=== PATIENT | male | born 1940 | race Caucasian/White ===

== ENCOUNTER 2021-11-09 14:40 | Observation (INO) | payer OTHER, MEDICARE, SELFPAY ==
[2021-11-09] VITALS (16 sets, daily range): BP systolic 178–214; BP diastolic 83–97; PULSE 60–89; RESP 12–22; TEMP 36.7–36.9; O2SAT 92–97; BMI 23.7
--- NOTE | 2021-11-09 14:51 | DI.RAD.S_ITS ---
PROCEDURE: XR CHEST 1V INDICATIONS: suspected sepsis TECHNIQUE: One view of the chest was acquired. COMPARISON: None. FINDINGS: Surgical changes and devices: None. Lungs and pleura: Lungs are clear. No pleural effusions or pneumothorax. Mediastinum: Mediastinal contours appear normal. Heart size is normal. Bones and chest wall: No suspicious bony lesions. Overlying soft tissues appear unremarkable. IMPRESSION: No acute cardiopulmonary pathology. Dictated by: Abelardo Curtis M.D. on 11/09/2021 at 15:44 Approved by: Abelardo Curtis M.D. on 11/09/2021 at 15:44
[2021-11-09 15:16] LABS: Add Manual Diff / Slide Review NO; Basophils Absolute Auto 0 /uL (0-100); Basophils Percent Auto 0.6 % (0-2); Eosinophils Absolute Auto 400 /uL (0-450); Eosinophils Percent Auto 5.8 % (2-4); Hematocrit 32.2 % (41-53); Hemoglobin 10.6 g/dL (13.5-17.5); Lymphocytes Absolute Auto 1600 /uL (1100-4500); Lymphocytes Percent Auto 22.7 % (25-40); Mean Corpuscular HGB Conc 32.8 % (30-36); Mean Corpuscular Hemoglobin 28.2 PG (26-34); Mean Corpuscular Volume 85.9 fL (80-100); Monocytes Absolute Auto 800 /uL (0-900); Monocytes Percent Auto 11.4 % (3-14); Neutrophils Absolute Auto 4100 /uL (1500-7000); Neutrophils Percent Auto 59.5 % (50-75); Platelet Count 318 X10^3/uL (150-400); Red Blood Cell Count 3.75 X10^6/uL (4.5-5.9); White Blood Cell Count 6.9 X10^3/uL (4.5-11.0)
[2021-11-09 15:24] LABS: Alanine Aminotransferase 26 IU/L (<50); Albumin 4.2 g/dL (3.5-5.0); Albumin Globulin Ratio 1.1 (1.0-2.8); Alkaline Phosphatase 83 U/L (38-126); Aspartate Aminotransferase 33 IU/L (17-59); BUN Creatinine Ratio 19.3 (6-22); Bilirubin Total 0.3 mg/dL (0.2-1.3); Blood Urea Nitrogen 27 mg/dL (9-20); Calcium 8.8 mg/dL (8.4-10.2); Carbon Dioxide 24 mmol/L (22-32); Chloride 102 mmol/L (98-107); Estimated Glomerular Filt Rate 51 mL/min (>60); Globulin 3.8 g/dL (1.7-4.1); Glucose 233 mg/dL (80-110); HEMOLYSIS < 15 (0-50); Lactate (Lactic Acid) 1.1 mmol/L (0.7-2.1); Lipase 76 U/L (23-300); Potassium 4.8 mmol/L (3.4-5.1); Sodium 136 mmol/L (137-145)
[2021-11-09 15:40] LABS: Procalcitonin 0.06 ng/mL (<0.5)
[2021-11-09 17:22] LABS: COVID19 -Nasal RAPID Negative (Negative)
[2021-11-09] MEDS: SODIUM CHLORIDE 0.9% 1,000 ML 1000 ML IV (17:27)
[2021-11-09 17:59] LABS: Appearance Urine UA CLEAR; Bilirubin Urine UA NEGATIVE (NEGATIVE); Color Urine UA YELLOW; Glucose Urine UA 1+ g/dL (Negative); Ketones Urine UA NEGATIVE (NEGATIVE); Leukocyte Esterase Urine UA NEGATIVE (NEGATIVE); Nitrite Urine UA NEGATIVE (Negative); Occult Blood Urine UA NEGATIVE (Negative); Protein Urine UA 1+ (Negative); Specific Gravity Urine UA 1.015 (1.000-1.035); Urobilinogen Urine UA 0.2 E.U./dL (0.2); pH Urine UA 5.5 (4.5-8.0)
[2021-11-09 18:07] LABS: Bacteria Urine None Seen; Culture Indicated Urine Cult Not Indicated; RBC Urine None Seen (0-5/HPF); Squamous Epithelial Cell Urine None Seen (0-5/HPF); WBC Urine None Seen (0-5/HPF)
--- NOTE | 2021-11-09 18:11 | ED.WEAKNESS ---
HPI - Weakness General Chief complaint: Weakness Stated complaint: Falling, Dizziness, Mind is scattered, Tired Time Seen by Provider: 11/09/21 15:17 Source: patient and family Mode of arrival: Ambulatory History of Present Illness HPI Narrative: Patient is 81-year-old male history of diabetes on metformin and glipizide chronically on oxycodone presents today with dizziness falling and generalized weakness. He states the last 3 days he has needed to hold onto things to get around his house which is pretty abnormal for him. He says every stands up he gets dizzy he has been falling more he says he has only least 4 times. He does not state that he has any injuries from the falls. He was nauseous and vomited on the way over here because he was dizzy. He generally just feels weak but no real focal deficits. He has not had any fever chills. Does have an infection on his left great toe, difficult to tell how long that has been there for. He has a prescription for Bactrim which was filled 2 days ago. He said he ran out of this prescription and started taking his ferret amoxicillin for couple of days. He says overall he feels like the toe is improving but is still erythematous without streaking. No chest pain no shortness of breath Related Data Home Medications Medication Instructions Recorded Confirmed fluoxetine 10 mg tablet 40 mg PO HS ##0 01/29/16 11/09/21 glipizide 10 mg tablet 10 mg PO BID ##0 01/29/16 11/09/21 hydrochlorothiazide 12.5 mg tablet 12.5 mg PO QDAY ##0 01/29/16 11/09/21 tamsulosin 0.4 mg capsule (Flomax) 0.4 mg PO QAM ##0 01/29/16 11/09/21 metformin 500 mg tablet,extended 1,000 mg PO QPM ##0 02/13/16 11/09/21 release 24 hr (Glucophage XR) metformin 500 mg tablet,extended 1,500 mg PO QAM ##0 02/13/16 11/09/21 release 24 hr (Glucophage XR) celecoxib 200 mg capsule (Celebrex) 200 mg PO BIDCC PRN Pain (Scale 09/29/16 11/09/21 Score 4-6) ##0 finasteride 5 mg tablet 5 mg PO HS ##0 09/29/16 11/09/21 bupropion HCl 100 mg tablet 100 mg PO TID 11/09/21 11/09/21 buspirone 10 mg tablet 10 mg PO DAILY 11/09/21 11/09/21 diazepam 5 mg tablet 5 mg PO DAILY PRN Anxiety 11/09/21 11/09/21 oxycodone myristate 18 mg capsule 18 mg PO BID 11/09/21 11/09/21 sprinkle extended release 12hr(DON'T CRUSH) (Xtampza ER) sulfamethoxazole 800 1 tab PO BID 11/09/21 11/09/21 mg-trimethoprim 160 mg tablet Previous Rx's Medication Instructions Recorded ACETAMINOPHEN 325 mg PO Q4HP PRN ##30 02/14/16 Allergies Allergy/AdvReac Type Severity Reaction Status Date / Time adhesive [ADHESIVE] Allergy Severe HUGE Verified 11/09/21 22:49 BLISTERS PAPER/SILK TAPE OK Review of Systems Review of Systems Narrative: GENERAL: Denies chills, fatigue, malaise, fever, sweats, travel HEENT: Denies sinus pain, ear pain, sore throat, difficulty swallowing, neck pain RESPIRATORY: Denies dyspnea, cough, wheezing, hemoptysis, sputum. CARDIOVASCULAR: Denies chest pain, palpitations, orthopnea, edema GASTROINTESTINAL: Denies nausea, vomiting, abdominal pain, diarrhea, constipation, melena. : Denies dysuria, frequency, incontinence, hematuria, urinary retention, flank pain. MUSCULOSKELETAL: Denies weakness, joint pain, or bony pain SKIN: Right great toe erythema NEUROLOGIC: See HPI PSYCHIATRIC: No concerning psychosocial issues. 12 point review of systems is negative except for those stated above and HPI Patient History Social History household members: none Smoking Status: Former smoker alcohol intake: never Exam Initial Vital Signs Initial Vital Signs: Vital Signs Temperature 98.5 F 11/09/21 14:44 Pulse Rate 82 11/09/21 14:44 Respiratory Rate 22 11/09/21 14:44 Blood Pressure 214/97 H 11/09/21 14:44 Pulse Oximetry 97 11/09/21 14:44 Oxygen Delivery Method 11/09/21 14:44 GENERAL: Alert pleasant 81-year-old male HEENT: Head atraumatic,EOMI, pupils reactive, face symmetric, moist mucous membranes CARDIOVASCULAR: Regular rate and rhythm without murmurs, rubs or gallops. RESPIRATORY: Breath sounds equal bilaterally, no wheezes rales or rhonchi. ABDOMEN: Soft, nontender. Normoactive bowel sounds all 4 quadrants. No guarding or rebound. EXTREMITIES: Normal range of motion, no clubbing or edema. Neurovascularly intact NEUROLOGICAL: Alert and oriented x3.Normal gait and speech. Cranial nerves II through XII grossly intact. Good pjukuw-vn-hfth, good hyju-hi-vzte, strength equal bilaterally, no dysarthria or aphasia, sensation in tact to soft touch bilaterally, no visual changes, no facial droop SKIN: No left great toe is erythematous no streaking no swelling or abscess Scores NIH Stroke Scale Level of Conciousness: Alert, keenly responsive Ask month/age: Answers both questions correctly. Open/close eyes, close hand: Performs both tasks correctly Best gaze horizontal: Normal Visual go: No visual loss Facial palsy: Normal symetrical movement Left arm drift: No drift for full 10 sec Right arm drift: No drift for full 10 sec Left leg drift: No drift for full 5 sec Right leg drift: No drift for full 5 sec Limb ataxia: Absent Sensory on face/arms/legs: Normal, no sensory loss Best language: No aphasia, normal Dysarthria: Normal Extinction or inattention: No abnormality Total NIH Stroke scale score: 0 Course Orders Ordered: ED Orders 11/09/21 16:30 Blood Culture Stat 11/09/21 17:38 Urinalysis and Microscopic Stat 11/09/21 18:12 CT head/brain wo con Stat 11/09/21 18:13 XR foot RT min 3V Stat 11/09/21 19:45 CT angio head and neck Stat Acetaminophen (Acetaminophen 325 Mg Tablet) 650 mg PO Q6HR PRN PRN Reason: Fever/Mild Pain (1-3) Aspirin (Aspirin Ec 81 Mg Tablet) 81 mg PO QPM RICKI Atorvastatin Calcium (Atorvastatin 20 Mg Tablet) 80 mg PO BEDTIME RICKI Clopidogrel Bisulfate (Clopidogrel 75 Mg Tablet) 75 mg PO DAILY RICKI Dextrose (Dextrose 50 % In Water 25 Gm/50 Ml Syringe) 25 gm IV PRN PRN PRN Reason: Hypoglycemia Enoxaparin Sodium (Enoxaparin 40 Mg/0.4 Ml Syringe) 40 mg SUBCUT DAILY [facility] Finasteride (Finasteride 5 Mg Tablet) 5 mg PO BEDTIME RICKI Last Admin: 11/09/21 23:53 Dose: 5 mg Documented By: JAI Fluoxetine HCl (Fluoxetine 20 Mg Capsule) 20 mg PO BEDTIME [facility] Last Admin: 11/09/21 23:53 Dose: 20 mg Documented By: JAI Insulin Human Lispro (Insulin Lispro 100 Unit/Ml 3ml Vial) 0 unit SUBCUT ACHS [facility]; Protocol Ondansetron HCl (Ondansetron 4 Mg/2 Ml Inj) 4 mg IV Q8HR PRN PRN Reason: Nausea And Vomiting Oxycodone HCl (Oxycodone Ir 5 Mg Tablet) 5 mg PO Q4H PRN PRN Reason: Pain, Moderate (4-6) Tamsulosin HCl (Tamsulosin 0.4 Mg Capsule) 0.4 mg PO DAILY [facility] Last Admin: 11/09/21 23:53 Dose: 0.4 mg Documented By: JAI Trimethoprim/Sulfamethoxazole (Trimeth/Sulfa 160/800 (Ds) Tablet) 1 tab PO BID [facility] Discontinued Medications Aspirin (Aspirin 81 Mg Chew Tab) 324 mg PO NOW ONE Stop: 11/09/21 22:09 Last Admin: 11/09/21 22:23 Dose: 324 mg Documented By: JESSICA Sodium Chloride (Normal Saline 0.9%) 1,000 mls @ 1,000 mls/hr IV BOLUS ONE Stop: 11/09/21 15:50 Last Infusion: 11/09/21 20:42 Dose: 0 mls/hr Documented By: Admin: 11/09/21 17:27 Dose: 1,000 mls/hr Documented By: JESSICA Vital Signs Vital signs: Vital Signs - 8 hr 11/09/21 17:12 11/09/21 17:30 11/09/21 18:00 Pulse Rate 69 63 71 Respiratory Rate Blood Pressure Pulse Oximetry 96 97 96 11/09/21 18:30 11/09/21 19:00 11/09/21 19:14 Pulse Rate 89 85 Respiratory Rate Blood Pressure 196/89 H Pulse Oximetry 96 96 11/09/21 19:14 11/09/21 19:30 11/09/21 20:15 Pulse Rate 86 86 86 Respiratory Rate Blood Pressure Pulse Oximetry 97 96 95 11/09/21 20:17 11/09/21 20:17 11/09/21 20:30 Pulse Rate 86 Respiratory Rate 17 Blood Pressure 180/85 H 178/83 H Pulse Oximetry 95 11/09/21 20:30 11/09/21 21:00 11/09/21 21:00 Pulse Rate 82 83 Respiratory Rate 12 16 Blood Pressure 191/88 H Pulse Oximetry 92 MDM - Weakness Lab Data Result diagrams: 11/09/21 15:00 11/09/21 15:00 Labs: Lab Results 11/09/21 11/09/21 11/09/21 Range/Units 15:00 15:00 15:00 WBC 6.9 (4.5-11.0) X10^3/uL RBC 3.75 L (4.5-5.9) X10^6/uL Hgb 10.6 L (13.5-17.5) g/dL Hct 32.2 L (41-53) % MCV 85.9 (80-100) fL MCH 28.2 (26-34) PG MCHC 32.8 (30-36) % RDW 15.0 H (11.6-14.8) % Plt Count 318 (150-400) X10^3/uL Neut % (Auto) 59.5 (50-75) % Lymph % (Auto) 22.7 L (25-40) % [place] % (Auto) 11.4 (3-14) % Eos % (Auto) 5.8 H (2-4) % Baso % (Auto) 0.6 (0-2) % Neut # (Auto) 4100 (7259-5120) /uL Lymph # (Auto) 1600 (2697-2077) /uL [place] # (Auto) 800 (0-900) /uL Eos # (Auto) 400 (0-450) /uL Baso # (Auto) 0 (0-100) /uL Sodium 136 L (137-145) mmol/L Potassium 4.8 (3.4-5.1) mmol/L Chloride 102 (98-107) mmol/L Carbon Dioxide 24 (22-32) mmol/L BUN 27 H (9-20) mg/dL Creatinine 1.40 H (0.66-1.25) mg/dL Estimated GFR 51 L (>60) mL/min BUN/Creatinine Ratio 19.3 (6-22) Glucose 233 H (80-110) mg/dL Lactate 1.1 (0.7-2.1) mmol/L Calcium 8.8 (8.4-10.2) mg/dL Total Bilirubin 0.3 (0.2-1.3) mg/dL AST 33 (17-59) IU/L ALT 26 (<50) IU/L Alkaline Phosphatase 83 (38-126) U/L Total Creatine Kinase (55-170) U/L CK-MB (CK-2) (<2.37) ng/mL CK-MB (CK-2) Rel Index (1.5-5.0) % Troponin I (0.01-0.034) ng/mL Total Protein 8.0 (6.3-8.2) g/dL Albumin 4.2 (3.5-5.0) g/dL Globulin 3.8 (1.7-4.1) g/dL Albumin/Globulin Ratio 1.1 (1.0-2.8) Lipase 76 (23-300) U/L Procalcitonin 0.06 (<0.5) ng/mL Urine Color Urine Appearance Urine pH (4.5-8.0) Ur Specific [place] (1.000-1.035) Urine Protein (Negative) Urine Glucose (UA) (Negative) g/dL Urine Ketones (NEGATIVE) Urine Occult Blood (Negative) Urine Nitrate (Negative) Urine Bilirubin (NEGATIVE) Urine Urobilinogen (0.2) E.U./dL Ur Leukocyte Esterase (NEGATIVE) Urine RBC (0-5/HPF) Urine WBC (0-5/HPF) Ur Squamous Epith Cells (0-5/HPF) Urine Bacteria (None) Ur Culture Indicated? SARS-CoV-2 (PCR) (Negative) 11/09/21 11/09/21 11/09/21 Range/Units 15:00 15:45 17:38 WBC (4.5-11.0) X10^3/uL RBC (4.5-5.9) X10^6/uL Hgb (13.5-17.5) g/dL Hct (41-53) % MCV (80-100) fL MCH (26-34) PG MCHC (30-36) % RDW (11.6-14.8) % Plt Count (150-400) X10^3/uL Neut % (Auto) (50-75) % Lymph % (Auto) (25-40) % [place] % (Auto) (3-14) % Eos % (Auto) (2-4) % Baso % (Auto) (0-2) % Neut # (Auto) (9287-2046) /uL Lymph # (Auto) (6156-7960) /uL [place] # (Auto) (0-900) /uL Eos # (Auto) (0-450) /uL Baso # (Auto) (0-100) /uL Sodium (137-145) mmol/L Potassium (3.4-5.1) mmol/L Chloride (98-107) mmol/L Carbon Dioxide (22-32) mmol/L BUN (9-20) mg/dL Creatinine (0.66-1.25) mg/dL Estimated GFR (>60) mL/min BUN/Creatinine Ratio (6-22) Glucose (80-110) mg/dL Lactate (0.7-2.1) mmol/L Calcium (8.4-10.2) mg/dL Total Bilirubin (0.2-1.3) mg/dL AST (17-59) IU/L ALT (<50) IU/L Alkaline Phosphatase (38-126) U/L Total Creatine Kinase 129 (55-170) U/L CK-MB (CK-2) 2.57 H (<2.37) ng/mL CK-MB (CK-2) Rel Index 2.0 (1.5-5.0) % Troponin I < 0.012 (0.01-0.034) ng/mL Total Protein (6.3-8.2) g/dL Albumin (3.5-5.0) g/dL Globulin (1.7-4.1) g/dL Albumin/Globulin Ratio (1.0-2.8) Lipase (23-300) U/L Procalcitonin (<0.5) ng/mL Urine Color Yellow Urine Appearance Clear Urine pH 5.5 (4.5-8.0) Ur Specific [place] 1.015 (1.000-1.035) Urine Protein 1+ H (Negative) Urine Glucose (UA) 1+ H (Negative) g/dL Urine Ketones Negative (NEGATIVE) Urine Occult Blood Negative (Negative) Urine Nitrate Negative (Negative) Urine Bilirubin Negative (NEGATIVE) Urine Urobilinogen 0.2 (0.2) E.U./dL Ur Leukocyte Esterase Negative (NEGATIVE) Urine RBC None seen (0-5/HPF) Urine WBC None seen (0-5/HPF) Ur Squamous Epith Cells None seen (0-5/HPF) Urine Bacteria None seen (None) Ur Culture Indicated? Cult not indicated SARS-CoV-2 (PCR) Negative (Negative) Imaging Data CTA - brain/neck: Radiologist Impression: Signed Patient: Tia Pedro MR#: [id number] : 1940 Acct:[id number] Age/Sex: 81 / M Date of Service: 11/09/21 Loc: ED Accession Number: [id number] ?? Procedure: CT angio head and neck Ordering Provider: Leticia Cabrera D.O. PROCEDURE:? CT ANGIO HEAD AND NECK ? INDICATIONS:? left foot ataxia ? TECHNIQUE:? After the administration of intravenous contrast, 1 mm thick sections acquired from the aortic arch through the [place].? Post-contrast 4.5 mm thick sections then re-acquired from the foramen magnum to the vertex.? 3-dimensional ffvrqwi-ripagwaxk-tnzvyeutlb (MIP) and/or volume rendering reformats were acquired of the central intracranial vasculature and neck separately. For radiation dose reduction, the following was used:? automated exposure control, adjustment of mA and/or kV according to patient size.? ? COMPARISON:? CT, HEAD WITHOUT CONTRAST, 09/02/2015, 16:33.? [facility], CT, CT HEAD/BRAIN WO CON, 11/09/2021, 18:20. ? FINDINGS:? Image quality:? Excellent.? ? BRAIN:? CSF spaces:? Basal cisterns are patent.? No extra-axial fluid collections.? There is mild cerebral volume loss, with resultant ventricular and sulcal prominence.? ? Brain:? No intracranial hematoma collections, mass, or mass effect.? There are subcortical, periventricular and deep white matter hypodensities consistent with mild chronic small vessel ischemic changes.? There is a focal hypodensity redemonstrated in the left basal ganglia consistent with sequelae of a prior lacunar infarct.? The gonzalez-white matter junction appears preserved.? No abnormal intracranial enhancement. ? Skull and face:? Calvarium and facial bones appear intact, without suspicious lesions.? Orbits appear normal.? ? Sinuses:? Sinuses and mastoids are clear.? ? HEAD CT ANGIOGRAPHY:? Anterior circulation:? Intracranial internal carotid arteries are normal in size and appear patent bilaterally.? There is mild atherosclerotic calcification along the cavernous segments of the internal carotid arteries.? The paired anterior cerebral arteries appear patent bilaterally.? The anterior communicating artery also appears patent. The middle cerebral arteries appear patent bilaterally.? No high-grade stenosis, occlusion, or filling defects.? No cerebral aneurysms identified. ? Posterior circulation:? Visualized portions of the vertebral arteries demonstrate normal caliber, and join to form a patent basilar artery.? The posterior cerebral arteries appears patent bilaterally.? No high-grade stenosis, occlusion, or filling defects.? No cerebral aneurysms identified. ? NECK CT ANGIOGRAPHY:? Carotid system:? The great vessels demonstrate a conventional anatomy as they arise from the aortic arch.? The origins of the common carotid arteries appear patent.? The common carotid arteries demonstrate normal caliber and courses.? There is bilateral calcified plaque at the carotid bifurcations and in the carotid bulbs.? There is severe narrowing of likely greater than 90% in the left carotid bulb.? Within the right carotid bulb, there is narrowing of up to approximately 50%.? The subsequent internal carotid arteries demonstrate normal calibers and courses.? ? Posterior circulation:? The origins of the vertebral arteries both appear patent.? The more superior extracranial portions of both vertebral arteries also demonstrate normal courses and calibers.? They join to form a patent basilar artery.? ? Soft tissues:? Visualized neck soft tissues demonstrate no suspicious abnormalities.? ? Bones:? No suspicious bony lesions.? Visualized cervical spine demonstrates multilevel degenerative disc disease and facet joint arthropathy. ? ? IMPRESSION:? ? 1. No high-grade stenosis or occlusion of the central intracranial arteries. ? 2. Bilateral narrowing in the carotid bulbs including severe stenosis on the left of likely greater than 90%.? There is narrowing of up to approximately 50% in the right carotid bulb. ? 3. Mild chronic white matter small vessel ischemic changes and cerebral volume loss.? ? Any quantitative measurements of stenosis were performed using NASCET criteria.? ? ? Dictated by: Kushal Adams M.D. on 11/09/2021 at 20:15 ? ? Approved by: Kushal Adams M.D. on 11/09/2021 at 20:24 ? CT scan - head: Radiologist Impression: Signed Patient: Tia Pedro MR#: [id number] : 1940 Acct:[id number] Age/Sex: 81 / M Date of Service: 11/09/21 Loc: ED Accession Number: [id number] ?? Procedure: CT head/brain wo con Ordering Provider: Leticia Cabrera D.O. PROCEDURE:? CT HEAD/BRAIN WO CON ? INDICATIONS:? falling dizzy ? TECHNIQUE:? Noncontrast 4.5 mm thick angled axial sections acquired from the foramen magnum to the vertex, with coronal and sagittal reformats.? For radiation dose reduction, the following was used:? automated exposure control, adjustment of mA and/or kV according to patient size.? ? COMPARISON:? None. ? FINDINGS:? Image quality: Excellent ? CSF spaces: Basal cisterns are patent. Lateral ventricles are symmetric. Volume:? Periventricular white matter hypoattenuation is commonly seen with chronic small vessel disease. Volume loss is present. These findings are moderate ? Brain: No intracranial hemorrhage. Gonzalez-white differentiation is grossly maintained.? Possible small old lacunar infarct. ? Craniofacial structures: No displaced fracture. Sinuses are clear. Orbits are intact. ? IMPRESSION:? No acute intracranial abnormality.? Favored chronic findings above.? ? ? Dictated by: Ferdinand Foster M.D. on 11/09/2021 at 18:42 ? ? Chest x-ray: Radiologist Impression: Signed Patient: Tia Pedro MR#: [id number] : 1940 Acct:[id number] Age/Sex: 81 / M Date of Service: 11/09/21 Loc: ED Accession Number: [id number] ?? Procedure: XR chest 1V Ordering Provider: Jessie Abrams MD PROCEDURE:? XR CHEST 1V ? INDICATIONS:? suspected sepsis ? TECHNIQUE:? One view of the chest was acquired.? ? COMPARISON:? None. ? FINDINGS:? ? Surgical changes and devices:? None.? ? Lungs and pleura:? Lungs are clear.? No pleural effusions or pneumothorax.? ? Mediastinum:? Mediastinal contours appear normal.? Heart size is normal.? ? Bones and chest wall:? No suspicious bony lesions.? Overlying soft tissues appear unremarkable.? ? IMPRESSION:? No acute cardiopulmonary pathology. ? ? Dictated by: Abelardo Curtis M.D. on 11/09/2021 at 15:44 ? ? Approved by: Abelardo Curtis M.D. on 11/09/2021 at 15:44 Extremity x-ray #1: Radiologist Impression: Signed Patient: Tia Pedro MR#: [id number] : 1940 Acct:[id number] Age/Sex: 81 / M Date of Service: 11/09/21 Loc: ED Accession Number: [id number] ?? Procedure: XR foot RT min 3V Ordering Provider: Leticia Cabrera D.O. PROCEDURE:? XR FOOT RT MIN 3V ? INDICATIONS:? gret toe infection ? TECHNIQUE:? 3 views of the foot were acquired.? ? COMPARISON:? None. ? FINDINGS:? ? Bones:? 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 Scattered other areas of arthrosis are present, less severe.? Plantar enthesopathy. ? Soft tissues:? No tibiotalar joint effusion.? Achilles tendon appears normal.? ? ? IMPRESSION:? 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 Less severe arthrosis is seen in other joints.? Plantar enthesopathy. No convincing osseous erosion. If there is high concern for further derangement, consider MRI evaluation. ? ? Dictated by: Ferdinand Foster M.D. on 11/09/2021 at 18:47 ? ? Approved by: Ferdinand Foster M.D. on 11/09/2021 at 18:49 ? ECG Data Interpretation: Normal sinus rhythm rate 82 MN interval 190 QRS 104 QTC 4 safety Q-wave noted in lead [address] changes no T-wave inversion, similar to prior in 2016 MDM Narrative Medical decision making narrative: Thrombus time patient does have a right toe infection no sign of osteomyelitis on x-ray. It Is erythematous they do not think causing his ongoing weakness falls and dizziness. Certainly no sign of sepsis. Creatinine up slightly at 1.4 his from previous labs in 2017. Head CT is negative. However upon ambulation trial he really does struck his left foot and he continues to trip over his left foot he thinks it is his shoe. However there is concern for CVA. He is noted to be quite hypertensive in the emergency department. CT angio does not show any abnormality. Certainly not in window for tPA it has been ongoing for [address] Rausch accepts patient Discharge Plan Departure Patient Disposition: Admitted As Inpatient Clinical Impression: CVA (cerebral vascular accident) Admit Date/Time: 11/09/21 22:09 Admit Provider: Ajith Rausch
--- NOTE | 2021-11-09 18:12 | DI.CT.S_ITS ---
PROCEDURE: CT HEAD/BRAIN WO CON INDICATIONS: falling dizzy TECHNIQUE: Noncontrast 4.5 mm thick angled axial sections acquired from the foramen magnum to the vertex, with coronal and sagittal reformats. For radiation dose reduction, the following was used: automated exposure control, adjustment of mA and/or kV according to patient size. COMPARISON: None. FINDINGS: Image quality: Excellent CSF spaces: Basal cisterns are patent. Lateral ventricles are symmetric. Volume: Periventricular white matter hypoattenuation is commonly seen with chronic small vessel disease. Volume loss is present. These findings are moderate Brain: No intracranial hemorrhage. Gonzalez-white differentiation is grossly maintained. Possible small old lacunar infarct. Craniofacial structures: No displaced fracture. Sinuses are clear. Orbits are intact. IMPRESSION: No acute intracranial abnormality. Favored chronic findings above. Dictated by: Ferdinand Foster M.D. on 11/09/2021 at 18:42 Approved by: Ferdinand Foster M.D. on 11/09/2021 at 18:45
--- NOTE | 2021-11-09 18:13 | DI.RAD.S_ITS ---
PROCEDURE: XR FOOT RT MIN 3V INDICATIONS: gret toe infection TECHNIQUE: 3 views of the foot were acquired. COMPARISON: None. 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 Scattered other areas of arthrosis are present, less severe. Plantar enthesopathy. Soft tissues: No tibiotalar joint effusion. Achilles tendon appears normal. 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 Less severe arthrosis is seen in other joints. Plantar enthesopathy. No convincing osseous erosion. If there is high concern for further derangement, consider MRI evaluation. Dictated by: Ferdinand Foster M.D. on 11/09/2021 at 18:47 Approved by: Ferdinand Foster M.D. on 11/09/2021 at 18:49
[2021-11-09 18:46] LABS: Creatine Kinase 129 U/L (55-170)
[2021-11-09 18:59] LABS: Troponin I < 0.012 ng/mL (0.01-0.034)
[2021-11-09 19:02] LABS: Creatine Kinase MB 2.57 ng/mL (<2.37)
--- NOTE | 2021-11-09 19:45 | DI.CT.S_ITS ---
PROCEDURE: CT ANGIO HEAD AND NECK INDICATIONS: left foot ataxia TECHNIQUE: After the administration of intravenous contrast, 1 mm thick sections acquired from the aortic arch through the [place] of [place]. Post-contrast 4.5 mm thick sections then re-acquired from the foramen magnum to the vertex. 3-dimensional yqpfnpg-auzmqjknh-xooumixiqv (MIP) and/or volume rendering reformats were acquired of the central intracranial vasculature and neck separately. For radiation dose reduction, the following was used: automated exposure control, adjustment of mA and/or kV according to patient size. COMPARISON: CT, HEAD WITHOUT CONTRAST, 09/02/2015, 16:33. [facility], CT, CT HEAD/BRAIN WO CON, 11/09/2021, 18:20. FINDINGS: Image quality: Excellent. BRAIN: CSF spaces: Basal cisterns are patent. No extra-axial fluid collections. There is mild cerebral volume loss, with resultant ventricular and sulcal prominence. Brain: No intracranial hematoma collections, mass, or mass effect. There are subcortical, periventricular and deep white matter hypodensities consistent with mild chronic small vessel ischemic changes. There is a focal hypodensity redemonstrated in the left basal ganglia consistent with sequelae of a prior lacunar infarct. The gonzalez-white matter junction appears preserved. No abnormal intracranial enhancement. Skull and face: Calvarium and facial bones appear intact, without suspicious lesions. Orbits appear normal. Sinuses: Sinuses and mastoids are clear. HEAD CT ANGIOGRAPHY: Anterior circulation: Intracranial internal carotid arteries are normal in size and appear patent bilaterally. There is mild atherosclerotic calcification along the cavernous segments of the internal carotid arteries. The paired anterior cerebral arteries appear patent bilaterally. The anterior communicating artery also appears patent. The middle cerebral arteries appear patent bilaterally. No high-grade stenosis, occlusion, or filling defects. No cerebral aneurysms identified. Posterior circulation: Visualized portions of the vertebral arteries demonstrate normal caliber, and join to form a patent basilar artery. The posterior cerebral arteries appears patent bilaterally. No high-grade stenosis, occlusion, or filling defects. No cerebral aneurysms identified. NECK CT ANGIOGRAPHY: Carotid system: The great vessels demonstrate a conventional anatomy as they arise from the aortic arch. The origins of the common carotid arteries appear patent. The common carotid arteries demonstrate normal caliber and courses. There is bilateral calcified plaque at the carotid bifurcations and in the carotid bulbs. There is severe narrowing of likely greater than 90% in the left carotid bulb. Within the right carotid bulb, there is narrowing of up to approximately 50%. The subsequent internal carotid arteries demonstrate normal calibers and courses. Posterior circulation: The origins of the vertebral arteries both appear patent. The more superior extracranial portions of both vertebral arteries also demonstrate normal courses and calibers. They join to form a patent basilar artery. Soft tissues: Visualized neck soft tissues demonstrate no suspicious abnormalities. Bones: No suspicious bony lesions. Visualized cervical spine demonstrates multilevel degenerative disc disease and facet joint arthropathy. IMPRESSION: 1. No high-grade stenosis or occlusion of the central intracranial arteries. 2. Bilateral narrowing in the carotid bulbs including severe stenosis on the left of likely greater than 90%. There is narrowing of up to approximately 50% in the right carotid bulb. 3. Mild chronic white matter small vessel ischemic changes and cerebral volume loss. Any quantitative measurements of stenosis were performed using NASCET criteria. Dictated by: Kushal Adams M.D. on 11/09/2021 at 20:15 Approved by: Kushal Adams M.D. on 11/09/2021 at 20:24
[2021-11-09] MEDS: ASPIRIN 81 MG CHEW TAB 324 MG PO (22:23)
--- NOTE | 2021-11-09 22:27 | P.HP_ITS ---
History of Present Illness History of Present Illness Date Patient Seen: 11/09/21 Time Patient Seen: 21:00 Chief complaint: Falling, Dizziness, Mind is scattered, Tired Narrative: Mr. Pedro is an 81M with PMH DM, who presents with stumbling and weakness. He notes that he has had dizziness over the last few days. He has also had difficulty walking and needs to hold on to things to move around. He feels he has trouble moving his left foot. He is currently being treated for an infection in his right great toe which is improving.?He does get migraines but has no headache now. He has noted difficulty swallowing for about a month. He denies any other extremity weakness. In the ED workup was done, vitals notable for elevated blood pressure 214/97. Labs notable for WBC 6.9. hgb 10.6. Creatinine 1.4. Lactate 1.1. UA negative. CT head with no acute process. CTA showed bilateral carotid bulb disease. Foot xray showed no evidence of osteomyelitis. He was attempting to ambulate but noted to have ataxia on his left and possible foot drop. He was given aspirin and admitted for further treatment. Family history: denies any stroke in family Social history: remote alcohol use Meds Home Medications and Allergies Home Medications Medication Instructions Recorded Confirmed Type fluoxetine 10 mg tablet 40 mg PO HS ##0 01/29/16 11/09/21 History glipizide 10 mg tablet 10 mg PO BID ##0 01/29/16 11/09/21 History hydrochlorothiazide 12.5 mg tablet 12.5 mg PO QDAY ##0 01/29/16 11/09/21 History tamsulosin 0.4 mg capsule (Flomax) 0.4 mg PO QAM ##0 01/29/16 11/09/21 History metformin 500 mg tablet,extended 1,000 mg PO QPM ##0 02/13/16 11/09/21 History release 24 hr (Glucophage XR) metformin 500 mg tablet,extended 1,500 mg PO QAM ##0 02/13/16 11/09/21 History release 24 hr (Glucophage XR) ACETAMINOPHEN 325 mg PO Q4HP PRN ##30 02/14/16 11/09/21 Rx celecoxib 200 mg capsule (Celebrex) 200 mg PO BIDCC PRN Pain (Scale 09/29/16 11/09/21 History Score 4-6) ##0 finasteride 5 mg tablet 5 mg PO HS ##0 09/29/16 11/09/21 History bupropion HCl 100 mg tablet 100 mg PO TID 11/09/21 11/09/21 History buspirone 10 mg tablet 10 mg PO DAILY 11/09/21 11/09/21 History diazepam 5 mg tablet 5 mg PO DAILY PRN Anxiety 11/09/21 11/09/21 History oxycodone myristate 18 mg capsule 18 mg PO BID 11/09/21 11/09/21 History sprinkle extended release 12hr(DON'T CRUSH) (Xtampza ER) sulfamethoxazole 800 1 tab PO BID 11/09/21 11/09/21 History mg-trimethoprim 160 mg tablet Allergies Allergy/AdvReac Type Severity Reaction Status Date / Time adhesive [ADHESIVE] Allergy Severe HUGE Verified 11/09/21 22:49 BLISTERS PAPER/SILK TAPE OK Review of Systems Review of Systems Narrative: 14 systems reviewed and negative aside from what is noted in HPI Exam Vital Signs (past 8 hours): - 11/09/21 14:44 11/09/21 16:39 11/09/21 17:12 Temperature 98.5 F Pulse Rate 82 68 69 Respiratory Rate 22 20 Blood Pressure 214/97 H 190/86 H Pulse Oximetry 97 97 96 Oxygen Delivery Method Room Air Room Air 11/09/21 17:30 11/09/21 18:00 11/09/21 18:30 Temperature Pulse Rate 63 71 89 Respiratory Rate Blood Pressure Pulse Oximetry 97 96 96 Oxygen Delivery Method 11/09/21 19:00 11/09/21 19:14 11/09/21 19:14 Temperature Pulse Rate 85 86 Respiratory Rate Blood Pressure 196/89 H Pulse Oximetry 96 97 Oxygen Delivery Method 11/09/21 19:30 11/09/21 20:15 11/09/21 20:17 Temperature Pulse Rate 86 86 Respiratory Rate Blood Pressure 180/85 H Pulse Oximetry 96 95 Oxygen Delivery Method 11/09/21 20:17 11/09/21 20:30 11/09/21 20:30 Temperature Pulse Rate 86 82 Respiratory Rate 17 12 Blood Pressure 178/83 H Pulse Oximetry 95 92 Oxygen Delivery Method 11/09/21 21:00 11/09/21 21:00 Temperature Pulse Rate 83 Respiratory Rate 16 Blood Pressure 191/88 H Pulse Oximetry Oxygen Delivery Method Oxygen Delivery Method Room Air Narrative Exam Narrative: GEN: no acute distress HEENT: moist mucous membranes, PERRL NECK: trachea midline, no JVD PULM: clear bilaterally, no wheezes, rhonchi, rales CV: regular rate and rhyhtm, no murmurs ABD: soft, nontender, nondistended, no organomegaly EXT: warm and well perfused with no edema NEURO: awake, alert, oriented, cn 2-12 intact, no focal deficits noted SKIN: right great toe is erythematous and swollen Objective Labs Result Diagrams: 11/09/21 15:00 11/09/21 15:00 Labs: Laboratory Results - last 24 hr 11/09/21 11/09/21 11/09/21 15:00 15:00 15:00 WBC 6.9 RBC 3.75 L Hgb 10.6 L Hct 32.2 L MCV 85.9 MCH 28.2 MCHC 32.8 RDW 15.0 H Plt Count 318 Neut % (Auto) 59.5 Lymph % (Auto) 22.7 L Cedar % (Auto) 11.4 Eos % (Auto) 5.8 H Baso % (Auto) 0.6 Neut # (Auto) 4100 Lymph # (Auto) 1600 [place]edar # (Auto) 800 Eos # (Auto) 400 Baso # (Auto) 0 Sodium 136 L Potassium 4.8 Chloride 102 Carbon Dioxide 24 BUN 27 H Creatinine 1.40 H Estimated GFR 51 L BUN/Creatinine Ratio 19.3 Glucose 233 H Lactate 1.1 Calcium 8.8 Total Bilirubin 0.3 AST 33 ALT 26 Alkaline Phosphatase 83 Total Creatine Kinase CK-MB (CK-2) CK-MB (CK-2) Rel Index Troponin I Total Protein 8.0 Albumin 4.2 Globulin 3.8 Albumin/Globulin Ratio 1.1 Lipase 76 Procalcitonin 0.06 Urine Color Urine Appearance Urine pH Ur Specific [place] Urine Protein Urine Glucose (UA) Urine Ketones Urine Occult Blood Urine Nitrate Urine Bilirubin Urine Urobilinogen Ur Leukocyte Esterase Urine RBC Urine WBC Ur Squamous Epith Cells Urine Bacteria Ur Culture Indicated? SARS-CoV-2 (PCR) 11/09/21 11/09/21 11/09/21 15:00 15:45 17:38 WBC RBC Hgb Hct MCV MCH MCHC RDW Plt Count Neut % (Auto) Lymph % (Auto) [place] % (Auto) Eos % (Auto) Baso % (Auto) Neut # (Auto) Lymph # (Auto) Cedar # (Auto) Eos # (Auto) Baso # (Auto) Sodium Potassium Chloride Carbon Dioxide BUN Creatinine Estimated GFR BUN/Creatinine Ratio Glucose Lactate Calcium Total Bilirubin AST ALT Alkaline Phosphatase Total Creatine Kinase 129 CK-MB (CK-2) 2.57 H CK-MB (CK-2) Rel Index 2.0 Troponin I < 0.012 Total Protein Albumin Globulin Albumin/Globulin Ratio Lipase Procalcitonin Urine Color Yellow Urine Appearance Clear Urine pH 5.5 Ur Specific [place] 1.015 Urine Protein 1+ H Urine Glucose (UA) 1+ H Urine Ketones Negative Urine Occult Blood Negative Urine Nitrate Negative Urine Bilirubin Negative Urine Urobilinogen 0.2 Ur Leukocyte Esterase Negative Urine RBC None seen Urine WBC None seen Ur Squamous Epith Cells None seen Urine Bacteria None seen Ur Culture Indicated? Cult not indicated SARS-CoV-2 (PCR) Negative Assessment & Plan Assessment & Plan narrative: Mr. Pedro is an 81M with H DM who presents with falls and ataxia 1. Ataxia -he also notes subacute dysphagia -etiology may be secondary to stroke/TIA -CT head shows no acute process -already on aspirin/statin -add plavix -swallow screen -NIH q4 hrs -keep on telemetry -allow permissive hypertension -ordered for MRI and ECHO -check a1c and lipids -ordered PT/OT and speech therapy 2. Left carotid bulb stenosis, severe -also 50% st[place] in right carotid bulb -already on aspirin and statin -add plavix -consider outpatient referral for carotid endarterectomy 3. Type 2 Diabetes with hyperglycemia -hold oral meds -check glucose achs, ordered insulin sliding scale 4. Right large toe cellulitis -continue bactrim -xray showed no evidence of osteomyelitis 5. BPH -continue finasteride and tamsulosin 6. Hypertension -hold anti-hypertensives for now for permissive hypertension 7. Elevated creatinine -possibly secondary to CKD vs AMBER -did get fluids in ED -recheck if improved in AM CODE: still deciding, Full code for now Proxy: Tia Johnson, family I have utilized all available resources to reconcile the patient's home medications Time Spent With Patient Critical Care time: I spent a total of [] minutes of critical care time on this patient's care today; this time is exclusive of procedural time. Quality MIPS - Admit I confirm the patient?s Advance Care Plan is present, Code status is documented, Surrogate decision maker is in patient?s record [If Yes, STOP here]: Yes
--- NOTE | 2021-11-09 22:58 | DI.ECHO.S_ITS ---
[facility]---------+ [facility] +---------+ : : [address] : : : : [id number] : : : : Phone: [phone]+ Echocardiogram Report + + :Name: DOMINGO SANTACRUZ Study Date: 11/10/2021 Height: 71 in : :[facility] ReadingLocation: Weight: 170 lb : : Gender: Male BSA: 2.0 m2 : :: 1940 Age: 81 yrs BP: 181/92 mmHg: :Reason For Study: STROKE : :Ordering Physician: THEA, : :CHAPO Performed By: Caroline Guy : :Referring: CHAPO SIDHU : + + Interpretation Summary There is mild concentric left ventricular hypertrophy. The ejection fraction is estimated to be 50-55%. Grade I diastolic dysfunction. The left atrium is mildly dilated. The right ventricle is normal in size and function. No significant valvular abnormalities. Unable to estimate PASP. The aortic root is mildly dilated. Procedure: A two-dimensional transthoracic echocardiogram with color flow and Doppler was performed. The study quality was technically adequate. There is no prior echocardiogram noted for this patient. The heart rate ranged between 67-91 bpm during the study. Left Ventricle: The left ventricle is normal in size. There is mild concentric left ventricular hypertrophy. The ejection fraction is estimated to be 50-55%. Diastolic parameters suggest a relaxation abnormality of the left ventricle, consistent with probable normal filling pressures. Right Ventricle: The right ventricle is normal in size and function. Atria: The left atrium is mildly dilated. Right atrial size is normal. There is no Doppler evidence for an interatrial shunt. Mitral Valve: The mitral valve is normal in structure and function. There is trace mitral regurgitation. Aortic Valve: The aortic valve is mildly calcified. The aortic valve is trileaflet. There is no aortic valve stenosis. No aortic regurgitation is present. Tricuspid Valve: The tricuspid valve is normal in structure and function. There is trace tricuspid regurgitation. Pulmonary artery pressures cannot be estimated because of the lack of a measurable TR jet velocity. Pulmonic Valve: The pulmonic valve leaflets are thin and pliable; valve motion is normal. There is no pulmonic valvular regurgitation. Great Vessels: The aortic root is mildly dilated. The dimensions of the ascending aorta are normal. The IVC is of normal diameter and collapses greater than 50% with a sniff. This suggests a low right atrial pressure of 3 mm Hg. Pericardium/ Pleura There is no pericardial effusion. There is no pleural effusion. MMode/2D Measurements & Calculations LVIDd: 4.5 cm LVOT diam: 2.4 cm LVIDs: 3.5 cm Ao root diam: 4.2 cm FS: 22.5 % asc Aorta Diam: 3.6 cm IVSd: 1.3 cm Ao Arch Diam (Prox Trans): 3.7 cm LVPWd: 1.2 cm LV walker. diameter/BSA (cm/m^2): 2.3 LV sys. diameter/BSA (cm/m^2): 1.8 LA A2 area: 22.2 cm2 RA long axis: 6.2 cm LA A4 area: 25.3 cm2 RA area: 16.0 cm2 LA length (vol): 6.0 cm RA vol: 35.4 ml LA vol: 79.0 ml RA : 18.0 ml/m2 LA vol index: 40.2 ml/m2 IVC diam: 1.5 cm RVD1 (basal): 3.3 cm RVD2 (mid): 3.5 cm TAPSE: 1.9 cm Doppler Measurements & Calculations Ao V2 max: 147.2 cm/sec LVOT Max Savage: 100.6 cm/sec Ao V2 mean: 103.8 cm/sec LV V1 max P.1 mmHg Ao max P.7 mmHg LV V1 VTI: 20.3 cm Ao mean P.8 mmHg BESSY(I,D): 3.4 cm2 Ao V2 VTI: 28.0 cm BESSY(V,D): 3.2 cm2 sev ratio: 0.72 BESSY indexed to BSA (cm^2/m^2): 1.7 MV E max savage: 55.9 cm/sec PA V2 max: 89.5 cm/sec MV A max savage: 80.4 cm/sec PA V2 mean: 59.2 cm/sec MV E/A: 0.70 PA mean P.6 mmHg Med Peak E' Savage: 7.1 cm/sec PA pr(Accel): 17.3 mmHg E/E' med: 7.9 Lat Peak E' Savage: 5.4 cm/sec E/E' lat: 10.4 E/e' average: 9.1 MV dec time: 0.36 sec SV(LVOT): 94.6 ml Reading Physician:02:49 PM
--- NOTE | 2021-11-09 22:58 | DI.MRI.S_ITS ---
PROCEDURE: MR STROKE Pre- and post-contrast brain MRI, non-contrast brain MR angiogram, pre- and postcontrast neck MR angiogram INDICATIONS: r/o cva TECHNIQUE: Brain: Noncontrast axial T1 spin echo, axial T2 fast spin echo, sagittal and axial FLAIR, coronal T2 fast spin echo, axial gradient echo, axial diffusion and ADC through the brain. After the administration of contrast, axial 3D VIBE of the cranial vasculature and brain. Brain MRA: Non-contrast 3-D time of flight MR angiogram, with multiple iakcnkc-jdqmstrxq-sjykvbbxck (MIP) reformats performed. Neck MRA: Axial and sagittal TruFISP through the neck. Coronal dynamic MR angiogram during administration of contrast in the arterial and venous phases, with 3-dimenstional dbumcuh-tqjuzswrz-iftjgrycgb (MIP) reformats constructed from subtraction images. COMPARISON: [facility], CT, CT ANGIO HEAD AND NECK, 11/09/2021, 19:52. FINDINGS: Image quality: Significant motion is present throughout the exam limiting areas of fine detail evaluation. BRAIN: The ventricular system and cortical sulci demonstrate atrophy, consistent for the patient's stated age. There are areas of increased T2/FLAIR signal intensity within the periventricular and subcortical white matter. There is no acute intra-or extra axial fluid collection. No acute hemorrhage, mass lesion or midline shift. Brainstem is unremarkable. There are no areas of restricted diffusion. Globes are symmetrical. Sinuses are aerated. Osseous structures are intact. BRAIN MR ANGIOGRAM: Anterior circulation: Intracranial internal carotid arteries are normal in size and enhancement. The flow within the paired anterior cerebral arteries is normal and symmetric. The flow within the middle cerebral arteries is normal and symmetric. The anterior communicating artery is seen. No stenoses, occlusions, or aneurysms. Posterior circulation: There is a slight right vertebral artery dominance. The visualized portions of the vertebral arteries demonstrate normal caliber, and join to form a normal appearing basilar artery. The flow within the posterior cerebral arteries is normal and symmetric. No stenoses, occlusions, or aneurysms. NECK MR ANGIOGRAM: The origins of the left and righ external carotid arteries demonstrate no areas of hemodynamically significant stenosis, vascular occlusion or aneurysmal dilation. Calcification is noted at the origins of the internal carotid arteries bilaterally, better appreciated on CT exam of 11/09/2021. There is severe narrowing, greater than 80% at the left carotid bulb. In addition, there is approximately 50% narrowing at the carotid bulb on the right. There is mild proximal right internal carotid artery stenosis measuring approximately the 30%. It proximal internal artery stenosis on the left is also present, approximately 30%. Origins of the left and right vertebral arteries demonstrate no areas of hemodynamically significant stenosis, vascular occlusion or aneurysmal dilation. Aortic arch demonstrates conventional anatomy. Limited, visualized portions of the subclavian vasculature are unremarkable. IMPRESSION: 1. No acute intracranial process. 2. Moderate to severe atrophy and chronic microvascular ischemic changes. 3. No areas of hemodynamically significant stenosis, vascular occlusion or aneurysmal dilation within the anterior or posterior circulation. 4. Prominent narrowing with calcification at the carotid bulbs bilaterally, left greater than right as above. Dictated by: Rea Akins M.D. on 11/10/2021 at 11:56 Approved by: Rea Akins M.D. on 11/10/2021 at 12:04
[2021-11-09] MEDS: TAMSULOSIN 0.4 MG CAPSULE PO (23:53)
[2021-11-09] MEDS: FLUoxetine 20 MG CAPSULE PO (23:53)
[2021-11-09] MEDS: FINASTERIDE 5 MG TABLET PO (23:53)
--- NOTE | 2021-11-10 03:42 | PC.NURSE ---
pt is AXOx4, independent and cooperative. VSS, except BP is slightly hypertensive 182/89 and MD is aware of it. Pt c/o little sting pain on R merchant bc he scratched around this area and sligtly bleeding and has small dots of open skin. BG-173 after pt arrived to the unit. NIH score was 0. Pt has Tele and it shows SR. No other changes overnight. Will continue monitor.
[2021-11-10] MEDS: OXYCODONE IR 5 MG TABLET PO ×2 (04:51→14:12)
[2021-11-10 07:00] VITALS: O2SAT 95
[2021-11-10 07:32] LABS: Add Manual Diff / Slide Review NO; Basophils Absolute Auto 0 /uL (0-100); Basophils Percent Auto 0.5 % (0-2); Eosinophils Absolute Auto 400 /uL (0-450); Eosinophils Percent Auto 7.4 % (2-4); Hematocrit 32.6 % (41-53); Hemoglobin 10.7 g/dL (13.5-17.5); Lymphocytes Absolute Auto 1100 /uL (1100-4500); Lymphocytes Percent Auto 22.6 % (25-40); Mean Corpuscular HGB Conc 32.8 % (30-36); Mean Corpuscular Hemoglobin 28.1 PG (26-34); Mean Corpuscular Volume 85.6 fL (80-100); Monocytes Absolute Auto 700 /uL (0-900); Monocytes Percent Auto 14.4 % (3-14); Neutrophils Absolute Auto 2800 /uL (1500-7000); Neutrophils Percent Auto 55.1 % (50-75); Platelet Count 314 X10^3/uL (150-400); Red Blood Cell Count 3.81 X10^6/uL (4.5-5.9); Red Cell Distribution Width 14.8 % (11.6-14.8); White Blood Cell Count 5.1 X10^3/uL (4.5-11.0)
[2021-11-10 07:36] LABS: BUN Creatinine Ratio 17.9 (6-22); Blood Urea Nitrogen 20 mg/dL (9-20); Calcium 8.7 mg/dL (8.4-10.2); Carbon Dioxide 27 mmol/L (22-32); Chloride 102 mmol/L (98-107); Cholesterol 194 mg/dL (140-199); Estimated Glomerular Filt Rate > 60 mL/min (>60); Glucose 161 mg/dL (80-110); HDL Cholesterol 45 mg/dL (40-60); HEMOLYSIS < 15 (0-50); LDL Cholesterol Calculated 121 mg/dL (<100); Potassium 4.4 mmol/L (3.4-5.1); Sodium 135 mmol/L (137-145); Triglycerides 142 mg/dL (35-150)
[2021-11-10 07:42] LABS: Hemoglobin A1C% w Est Avg Glu 9.1 % (4.0-6.0)
[2021-11-10 07:44] VITALS: BP 189/69; PULSE 82; RESP 18; TEMP 36.8; O2SAT 97
--- NOTE | 2021-11-10 07:56 | P.PN_ITS ---
Subjective Subjective Date Patient Seen: 11/10/21 Time Patient Seen: 15:00 Exam Vital Signs (past 8 hours): - 11/10/21 07:00 11/10/21 07:44 Temperature 98.2 F Pulse Rate 82 Respiratory Rate 18 Blood Pressure 189/69 H Pulse Oximetry 95 97 Oxygen Delivery Method Room Air Oxygen Flow Rate 0 Oxygen Delivery Method Room Air Oxygen Flow Rate 0 Narrative Exam Narrative: GEN: no acute distress HEENT: moist mucous membranes, PERRL NECK: trachea midline, no JVD PULM: clear bilaterally, no wheezes, rhonchi, rales CV: regular rate and rhyhtm, no murmurs ABD: soft, nontender, nondistended, no organomegaly EXT: warm and well perfused with no edema NEURO: awake, alert, oriented, cn 2-12 intact, no focal deficits noted SKIN: right great toe is erythematous and swollen Objective Labs Result Diagrams: 11/10/21 06:30 11/10/21 06:30 Labs: Laboratory Results - last 24 hr 11/09/21 11/09/21 11/09/21 15:00 15:00 15:00 WBC 6.9 RBC 3.75 L Hgb 10.6 L Hct 32.2 L MCV 85.9 MCH 28.2 MCHC 32.8 RDW 15.0 H Plt Count 318 Neut % (Auto) 59.5 Lymph % (Auto) 22.7 L Mercer % (Auto) 11.4 Eos % (Auto) 5.8 H Baso % (Auto) 0.6 Neut # (Auto) 4100 Lymph # (Auto) 1600 Mercer # (Auto) 800 Eos # (Auto) 400 Baso # (Auto) 0 Sodium 136 L Potassium 4.8 Chloride 102 Carbon Dioxide 24 BUN 27 H Creatinine 1.40 H Estimated GFR 51 L BUN/Creatinine Ratio 19.3 Glucose 233 H Hemoglobin A1c Lactate 1.1 Calcium 8.8 Total Bilirubin 0.3 AST 33 ALT 26 Alkaline Phosphatase 83 Total Creatine Kinase CK-MB (CK-2) CK-MB (CK-2) Rel Index Troponin I Total Protein 8.0 Albumin 4.2 Globulin 3.8 Albumin/Globulin Ratio 1.1 Triglycerides Cholesterol LDL Cholesterol, Calc HDL Cholesterol Lipase 76 Procalcitonin 0.06 Urine Color Urine Appearance Urine pH Ur Specific [place] Urine Protein Urine Glucose (UA) Urine Ketones Urine Occult Blood Urine Nitrate Urine Bilirubin Urine Urobilinogen Ur Leukocyte Esterase Urine RBC Urine WBC Ur Squamous Epith Cells Urine Bacteria Ur Culture Indicated? SARS-CoV-2 (PCR) 11/09/21 11/09/21 11/09/21 15:00 15:45 17:38 WBC RBC Hgb Hct MCV MCH MCHC RDW Plt Count Neut % (Auto) Lymph % (Auto) Mercer % (Auto) Eos % (Auto) Baso % (Auto) Neut # (Auto) Lymph # (Auto) Mercer # (Auto) Eos # (Auto) Baso # (Auto) Sodium Potassium Chloride Carbon Dioxide BUN Creatinine Estimated GFR BUN/Creatinine Ratio Glucose Hemoglobin A1c Lactate Calcium Total Bilirubin AST ALT Alkaline Phosphatase Total Creatine Kinase 129 CK-MB (CK-2) 2.57 H CK-MB (CK-2) Rel Index 2.0 Troponin I < 0.012 Total Protein Albumin Globulin Albumin/Globulin Ratio Triglycerides Cholesterol LDL Cholesterol, Calc HDL Cholesterol Lipase Procalcitonin Urine Color Yellow Urine Appearance Clear Urine pH 5.5 Ur Specific [place] 1.015 Urine Protein 1+ H Urine Glucose (UA) 1+ H Urine Ketones Negative Urine Occult Blood Negative Urine Nitrate Negative Urine Bilirubin Negative Urine Urobilinogen 0.2 Ur Leukocyte Esterase Negative Urine RBC None seen Urine WBC None seen Ur Squamous Epith Cells None seen Urine Bacteria None seen Ur Culture Indicated? Cult not indicated SARS-CoV-2 (PCR) Negative 11/10/21 11/10/21 11/10/21 06:30 06:30 06:30 WBC 5.1 RBC 3.81 L Hgb 10.7 L Hct 32.6 L MCV 85.6 MCH 28.1 MCHC 32.8 RDW 14.8 Plt Count 314 Neut % (Auto) 55.1 Lymph % (Auto) 22.6 L Mercer % (Auto) 14.4 H Eos % (Auto) 7.4 H Baso % (Auto) 0.5 Neut # (Auto) 2800 Lymph # (Auto) 1100 Mercer # (Auto) 700 Eos # (Auto) 400 Baso # (Auto) 0 Sodium 135 L Potassium 4.4 Chloride 102 Carbon Dioxide 27 BUN 20 Creatinine 1.12 Estimated GFR > 60 BUN/Creatinine Ratio 17.9 Glucose 161 H Hemoglobin A1c 9.1 H Lactate Calcium 8.7 Total Bilirubin AST ALT Alkaline Phosphatase Total Creatine Kinase CK-MB (CK-2) CK-MB (CK-2) Rel Index Troponin I Total Protein Albumin Globulin Albumin/Globulin Ratio Triglycerides 142 Cholesterol 194 LDL Cholesterol, Calc 121 H HDL Cholesterol 45 Lipase Procalcitonin Urine Color Urine Appearance Urine pH Ur Specific [place] Urine Protein Urine Glucose (UA) Urine Ketones Urine Occult Blood Urine Nitrate Urine Bilirubin Urine Urobilinogen Ur Leukocyte Esterase Urine RBC Urine WBC Ur Squamous Epith Cells Urine Bacteria Ur Culture Indicated? SARS-CoV-2 (PCR) [facility] Social History household members: none Smoking Status: Former smoker alcohol intake: never Assessment & Plan Assessment & Plan narrative: Mr. Pedro is an 81M with PMH DM who presents with falls and ataxia 1. Ataxia -he also notes subacute dysphagia -etiology may be secondary to stroke/TIA -CT head shows no acute process -already on aspirin/statin -add plavix -swallow screen -NIH q4 hrs -keep on telemetry -allow permissive hypertension -ordered for MRI and ECHO -a1c 9.1%, LDL 121 -ordered PT/OT and speech therapy 2. Left carotid bulb stenosis, severe -also 50% stenosis in right carotid bulb -already on aspirin and statin -add plavix -consider outpatient referral for carotid endarterectomy 3. Type 2 Diabetes with hyperglycemia -hold oral meds -check glucose achs, ordered insulin sliding scale 4. Right large toe cellulitis -continue bactrim -xray showed no evidence of osteomyelitis 5. BPH -continue finasteride and tamsulosin 6. Hypertension -hold anti-hypertensives for now for permissive hypertension 7. Elevated creatinine -possibly secondary to CKD vs AMBER -did get fluids in ED -recheck if improved in AM CODE: still deciding, Full code for now Proxy: Tia Johnson, family I have utilized all available resources to reconcile the patient's home medications Time Spent With Patient Critical Care time: I spent a total of [] minutes of critical care time on this patient's care today; this time is exclusive of procedural time. Quality VTE Deep Vein Thrombosis/Pulmonary Embolism Present on Admission: No
[2021-11-10] MEDS: CLOPIDOGREL 75 MG TABLET PO (08:16)
[2021-11-10] MEDS: TAMSULOSIN 0.4 MG CAPSULE PO (08:16)
[2021-11-10] MEDS: TRIMETH/SULFA 160/800 (DS) TABLET 1 TAB PO (08:16)
[2021-11-10] MEDS: ENOXAPARIN 40 MG/0.4 ML SYRINGE SUBCUT (08:19)
[2021-11-10] MEDS: diazePAM 5 MG TABLET 10 MG PO (08:56)
--- NOTE | 2021-11-10 10:23 | PC.NURSE ---
Addendum entered by Shirley Mobley R.N. 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 tolerated dose w/o side effects. states burning has decreased foam dressing applied and wrapped w/ gauze. oxycodone 10mg found in his bed, not hospital supply. large bag of meds noted to be in the corner, and this was sent to pharmacy to hold, along w/ the pink oxycodone which was taped into a plastic baggie and handed to pharmacist Clark. patient states i think i had the oxycodone bottle here, but I cant find it. PIPELINE INSPECTOR and RN searched room to locate the bottle, but did not locate it. call placed to son to update on today's events, and let him know about the missing bottle of oxycodone. 1530: d/c orders: call to son to notify of need to p/u. echo : 50-55% Original Note: a/o, voices needs. SBA ADL assistance and mobility. c/o slight pain /tingling to R merchant, which has superficial scabbed scratches from ankle to mid merchant. area cleansed w/ warm washcloth, petroleum jelly applied to protect skin . has large callus to R great toe, patient visits mottler machine feeder regularly, states he was seen recently the doctor shaved off part of that and left it. wound RN notified of above and anticipate we can take a pic of R foot when he returns from MRI. NIH 1 this AM r/t ataxia RLE. requested PRN valium as patient takes this at home. additional order requested prior to MRI. 10mg Valium given. off floor via w/c for MRI.
--- NOTE | 2021-11-10 12:13 | PC.RNWOUND ---
Right Great Toe- Medial View Right Great Toe- Dorsal View Right Great Toe- Plantar View Patient sitting up in chair, removes sock to right foot, Right Great Toe has a build up of callus to the medial aspect of the toe, with a 0.2 x 0.3 x 0.1cm open area to the callus on the plantar toe. Toenail to this digit is thickened, 2nd digit crosses over to overlap great toe and there is a small reddened area to the 2nd toe where it appears it may be rubbing in toebox of shoe. 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 Patient says he sees control clerk auditing regularly for serial debridements of callus, is currently on antibiotics (oral bactrim) for management of infection. Patient says swelling has really gone down compared to how it was before. Recommendation is for patient to follow up with podiatry for continued callus debridement and for evaluation of footwear with degenerative changes, also with assistant health educator for continued education re importance of blood glucose control as a lifestyle.
[2021-11-10 12:16] VITALS: BP 162/63; PULSE 91; RESP 16; TEMP 36.8; O2SAT 96
--- NOTE | 2021-11-10 12:17 | PT.IIE ---
Physical Therapy Inpatient Evaluation/Re-Eval M1 PT/OT-IP Prior Functional Status Start: 11/10/21 12:46 Freq: NEEDED Status: Active Protocol: Document 11/10/21 12:17 AB (Rec: 11/10/21 12:57 AB [id number]) Medical Review Prior Functional Status Medical History Reviewed Yes Communication able to make needs known; with slight confusion Mobility and Gait pt stated that he is independent with all mobilities and ambulation wtihout AD Social History Household Members none Living Arrangements House Number of Floors (Floors) One Floor Number of Stairs To Enter/Railing? 3 steps R rail to enter Home Environment Standard Height Toilet,Tub/ Shower Home Equipment Front Wheel Walker,Quad Cane, Straight Cane,Shower Seat with Backrest,Hand Held Shower, Grab Bars Near Toilet,Grab Bars In Shower Additional Social History Comment pt stated that his son lives 10 min away and he can call to help him if needed M2 PT-IP Current Condition Start: 11/10/21 12:46 Freq: NEEDED Status: Active Protocol: Document 11/10/21 12:17 AB (Rec: 11/10/21 12:57 AB [id number]) Physical Therapy Current Condition Current Condition Evaluation Date 11/10/21 Treatment Diagnosis r/o CVA; difficulty in walking Onset Date 11/09/21 M3 PT-IP Subjective Start: 11/10/21 12:46 Freq: NEEDED Status: Active Protocol: Document 11/10/21 12:17 AB (Rec: 11/10/21 12:57 [id number]) Subjective Physical Therapy Visit Type Type Initial Evaluation Visit Start Time 12:17 Visit Stop Time 12:35 Total Visit Minutes 18 Number of BACTERIOLOGIST SOIL Visits 0 Physical Therapy Visit Comments Patient Comments agreeable to do PT Therapy Pain Assessment Pain When Pain Assessed At Rest Pain Present Pain Present Pain Reported Location Right Lower Iglesias Scale Used pain scale not stated M4 PT-IP Mobility and Gait Start: 11/10/21 12:46 Freq: NEEDED Status: Active Protocol: Document 11/10/21 12:17 AB (Rec: 11/10/21 12:57 [id number]) PT-Bed Mobility Assessment Supine to Sit Supine to Sit Independent Sit to Supine Sit to Supine Independent PT-Transfer Assessment Sit to and From Stand Sit to and from Stand Standby Assistance Equipment Transfer Assistive Device None,Gait Belt Orthotic/Prosthetic Devices or Brace: No Transfers Transfer Destination Bed,Chair Transfer Technique ambulated Comments Mobility Comments pt sitting on chair and agreed to do PT. completed sit to stand from chair SBA and ambulated to the bed without AD SBA. presents with narrow antalgic gait with dec BLE elevation R>L. completed bed mobility sit<>supine mod I. ambulated back to chair SBA to CGA with one incident of pt tripping but with recovery. educated pt in increased BERNIE, increase LE elevation and correcting R foot inversion. pt can be impulsive and also educated on safety. educated pt on how to use FWW and completed SBA ambulation using FWW ~ 35 ft and presents with more stable gait. pt agreed to use FWW at this time. pt also completed up/down step stool using R rail ascending SBA. pt sat back on chair and set up with lunch. call light and table placed within reach. Gait Assessment Gait Gait Assistance Required: Standby Assistance,1 Person Assist Distance (Feet) 35 Able to Maintain Weight Bearing Status Yes During Gait Assistive Devices Assistive Device None,Gait Belt,Front Wheeled Walker Orthotic/Prosthetic Devices or Brace: No Gait Deviations General Gait Pattern Decreased Stride Length, Decreased Feet Clearance, Narrow Based Gait Factors Limiting Gait Function Factors Limiting Gait Function Decreased Activity Tolerance, Decreased Strength,Pain,Poor Balance,Poor Safety Awareness Stair Climbing Assessment Evaluation Level of Assist On Stairs Standby Assistance Devices Stair Climbing Assistive Devices Right Railing Technique/Endurance Stair Climbing Direction Ascend and Descend Stair Climbing Technique Step to Step Number of Steps Climbed 1 Query Text: Stair Climbing Set # Repetitions (reps) 1 PT-Balance Assessment Sitting Balance and Reactions Static Sitting Balance Ability Normal Dynamic Sitting Balance Ability Good Standing Balance and Reactions Static Standing Balance Ability Good Dynamic Standing Balance Ability Fair Device Used without AD M5 PT-IP Objective Assessments Start: 11/10/21 12:46 Freq: NEEDED Status: Active Protocol: Document 11/10/21 12:17 AB (Rec: 11/10/21 12:57 AB [id number]) Orientation Orientation/Cognition Level of Alertness Alert Orientation Name Language Function Ability Hard of Hearing Safety Awareness Decreased Safety Awareness Strength Lower Extremity Strength Hip 4-/5 Knee 4-/5 Muscle Tone Muscle Tone WNL Yes M6 PT-IP Treatment Start: 11/10/21 12:46 Freq: NEEDED Status: Active Protocol: Document 11/10/21 12:17 AB (Rec: 11/10/21 12:57 AB [id number]) Physical Therapy Treatment Education Education Provided Safety M7 PT-IP Assessment and Plan Start: 11/10/21 12:46 Freq: NEEDED Status: Active Protocol: Document 11/10/21 12:17 AB (Rec: 11/10/21 12:57 AB [id number]) PT Summary Assessment and Plan Potential Rehabilitation Potential Fair Status of Condition at Evaluation Stable Summary Impairments Pain,ROM,Strength,Balance, Coordination,Sensation,Tone, Cognition,Bed Mobility, Transfers,Gait,Activity Tolerance Assessment Summary pt requiring SBA to CGA with mobility and recommending use of FWW especially fo outdoor mobility at this time for safety. pt able to ambulate wihtout AD SBA to CGA but with unstable gait. pt agreed to use a FWW at this time. will continue to assess progress. Goals Transfer Goal Independent Gait Goal Independent Gait Distance 200 Other Goals up/down 3 steps R rail ascending mod I Days to Meet Goals 5 Frequency of Treatment Frequency Of Treatment Once a Day Treatment Plan Physical Therapy Treatment Plan Bed Mobility Training,Transfer Training,Gait Training, Therapeutic Exercise,Balance Retraining,Discharge Planning, Hot or Cold Pack,Neuromuscular Re-ed,Coordination Retraining ,Manual Therapy Precautions Other Precautions falls Recommendations To Nursing Amount of Assist Needed Standby Assistance Discharge Recommendations PT Discharge Recommendations Home with Assistance Transportation Needs at Discharge Private Vehicle
--- NOTE | 2021-11-10 12:24 | ST-OP ANOTE ---
Physical, Occupational & Speech Therapy At [facility] Speech Therapy Note Order received. Pt was up in his room. Introduced self and new BOOT LACE CUTTER MACHINE, Madeline. Described purpose of visit re: swallowing. Pt noted that he has no difficulty swallowing foods or liquids. He does note that he has large pills that he needs to break in two in order to swallow. Pt denied swallowing evaluation. Screened cognition. Pt was oriented, able to relate how he came to the hospital, etc. No obvious cognitive dysfunction observed. Will discharge order.
[2021-11-10] MEDS: INSULIN LISPRO 100 UNIT/ML 3ML VIAL SUBCUT (12:27)
[2021-11-10] MEDS: GABAPENTIN 100 MG CAPSULE PO (13:24)
--- NOTE | 2021-11-10 14:17 | OT.IP.EVAL ---
Occupational Therapy Inpatient Evaluation/Re-Eval M1 PT/OT-IP Prior Functional Status Start: 11/10/21 12:46 Freq: NEEDED Status: Active Protocol: Document 11/10/21 14:17 [facility] (Rec: 11/10/21 16:35 [facility] [id number]) Medical Review Prior Functional Status Medical History Reviewed Yes Communication able to make needs known; with slight confusion Mobility and Gait pt stated that he is independent with all mobilities and ambulation without AD Activities of Daily Living and IADL's Pt states has been independent with ADL's, but has not been able to do yard work in 2 weeks. Pt initially states he drive in town, but later admits does not really drive anymore. Social History Household Members none Living Arrangements House Number of Floors (Floors) One Floor Number of Stairs To Enter/Railing? 3 steps R rail to enter Home Environment Standard Height Toilet,Tub/ Shower Home Equipment Front Wheel Walker,Quad Cane, Straight Cane,Shower Seat with Backrest,Hand Held Shower, Grab Bars Near Toilet,Grab Bars In Shower Additional Social History Comment pt stated that his son lives 10 min away and he can call to help him if needed M2 OT-IP Current Condition Start: 11/10/21 16:14 Freq: Status: Active Protocol: Document 11/10/21 14:17 [facility] (Rec: 11/10/21 16:35 [facility] [id number]) Occupational Therapy Current Condition Current Condition Evaluation Date 11/10/21 Treatment Diagnosis TIA Diagnosis Onset Date 11/09/21 M3 OT- IP Subjective and Pain Start: 11/10/21 16:14 Freq: Status: Active Protocol: Document 11/10/21 14:17 [facility] (Rec: 11/10/21 16:35 [facility] [id number]) OT- Subjective Occupational Therapy Visit Type Type Initial Evaluation Visit Start Time 13:49 Visit Stop Time 14:17 Total Visit Minutes 28 Occupational Therapy Visit Comments Patient Comments Pt agreed to work with OT. Patient/Caregiver Goals TO go home. OT Pain Assessment Pain When Pain Assessed At Rest Pain Present Pain Present yes M4 OT- IP ADL's Start: 11/10/21 16:14 Freq: Status: Active Protocol: Document 11/10/21 14:17 [facility] (Rec: 11/10/21 16:35 [facility] [id number]) OT [id number] Comments OT Self-Feeding Comments NOt at meal time. OT ADL-Grooming Comments OT Grooming Comments Pt states did earlier. OT ADL-Oral Care Comments Oral Care Comments not performed OT ADL-Dressing General Eval Lower Body Dressing Ability Standby Assistance Comments OT Dressing Comments Pt able to kwan/doff his socks from the toilet. OT ADL-Toileting Comments OT Toileting Comments Pt not having to go but able to get on and off the toilet on his own with heavy use of grab bars to assist. OT ADL-Bathing Comments OT Bathing Comments Not performed. Pt would benefit from assist for showering as pt is a little unsteady. Pt currently has a shower chair and grab bar for tub/shower. M5 OT- IP IADL's Start: 11/10/21 16:14 Freq: Status: Active Protocol: Document 11/10/21 14:17 [facility] (Rec: 11/10/21 16:35 [facility] [id number]) OT-Instrumental Activities of Daily Living Deficits IADL Deficits Identified Deficits Home Safety Awareness Awareness of Need for Assistance at Home Decreased Awareness Ability to Problem Solve Emergency Unable to Problem Solve Situations Home Safety Comments Pt needing increased time to solve emergency situation and not knowing what to do in case of the toilet overflowing. Medication Management Medication Management Comments Pt is a little confused, slow to follow directions at this time and would benefit from assist . Current pt states handles his medications in a shot glass . Suggested use of a pill organizer. Money Management Money Management Caregiver Provides Assistance Meal Preparation Meal Preparation Comments Pt will benefit from assist. Computer Discovery Teacher Computer Discovery Teacher Comments Pt will benefit from assist. Driving Driving Concerns Identified Regarding Safety M6 OT- IP Functional Cognition Start: 11/10/21 16:14 Freq: Status: Active Protocol: Document 11/10/21 14:17 [facility] (Rec: 11/10/21 16:35 [facility] [id number]) Cognitive Factors Limiting Selfcare Function Cognitive Ability Level of Alertness Alert Patient Orientation Name,Place,Situation Attention Span Ability Capable of Focused Attention, Unable to Sustain Attention Ability to Follow Commands Able to Follow One Step Commands with Increased Time, Able to Follow One Step Commands with Repetition Memory Description Short Term Impaired,Working Impaired Safety Awareness Underestimates Need for Assistance Problem Solving Ability Needs Assist to Identify Solutions Executive Function Ability Unable to Switch Focus,Unable to Organize Plans,Unable to Remember Details Cognitive Comments Cognitive Assessment Comments Pt not able to complete [place] Making Part B and having difficulty to remember to follow the directions. Pt knows that he is not thinking well and feels that it is due to him not sleeping well last night. OT- Vision and Hearing OT- Vision Assessment Visual Acuity Glasses All The Time M7 OT- IP Mobility and Balance Start: 11/10/21 16:14 Freq: Status: Active Protocol: Document 11/10/21 14:17 [facility] (Rec: 11/10/21 16:35 [facility] [id number]) OT- Bed Mobility Assessment Rolling Level of Assistance Standby Assistance Supine to Sit Supine to Sit Assist Standby Assistance Sit to Supine Sit to Supine Assist Standby Assistance OT-Transfer Assessment Sit to and From Stand Sit to and from Stand Standby Assistance Transfers Transfer Ability Standby Assistance,Contact Guard Assistance Technique Transfer Destination Bed,Chair,Toilet Transfer Technique Stand Step Pivot Devices Transfer Assistive Devices None,Gait Belt Comments Mobility Comments Pt initially wanting therapist to give him a hand to get up from bed. Asked pt what he does at home since he lives alone and then pt able to get up with increased time and momentum and bed rail to assist. Pt states able to do his laundry on his own, simulated by having pt pick out hand the trash can. Pt is unsteady on his feet and needing CGA for balance. Suggested pt get assist for his IADL needs and that use of the FWW will be safer for him at home. OT- Balance Assessment Sitting Balance and Reactions Static Sitting Balance Ability Good Dynamic Sitting Balance Ability Fair Standing Balance and Reactions Static Standing Balance Ability Fair Dynamic Standing Balance Ability Poor M8 OT- IP Objective Assessments Start: 11/10/21 16:14 Freq: Status: Active Protocol: Document 11/10/21 14:17 [facility] (Rec: 11/10/21 16:35 [facility] [id number]) OT Gross Range of Motion Upper Extremity Range of Motion Assessment Within Functional Limits OT Strength Upper Extremity Strength Assessment Within Functional Limits OT- Coordination Assessment Upper Extremity Finger to Nose Test Within Functional Limits Comments Coordination Comments Increased time to understand directions for diadochokinesis . OT-Muscle Tone Assessment Muscle Tone WNL Yes OT Sensation Assessment Comments Summary Comments intact for light touch, pt states feels the same on both side of his BUE M9 OT- IP Assessment and Plan Start: 11/10/21 16:14 Freq: Status: Active Protocol: Document 11/10/21 14:17 [facility] (Rec: 11/10/21 16:35 [facility] [id number]) OT Summary Assessment and Plan Potential Rehabilitation Potential Good Analytic Complexity at Evaluation Low Summary OT Impairments Balance,Functional Cognition, Functional Mobility,Grooming, Dressing,Toileting,Bathing, Toilet Transfers,Shower Transfers,Activity Tolerance Progress Towards Goals Slow Progress due to Activity Tolerance,Slow Progress due to Cognition Assessment Summary Pt low complexity and here due to TIA. Pt now needing use of FWW and would benefit from 24 /7 available assist initially as pt will have difficulty to do IADl and showering needs due to his decreased dynamic balance. Pt also having difficulty with executive cognitive functioning and not able to complete [place] Making Part B therefore implying severe deficits with task switching, speed of processing, mental flexibility, visual attentions , and executive functioning. Strongly recommended someone to stay with the pt initially as pt lives alone. Pt and nurse aware of suggestions. Goals Grooming Goal Independent Dressing Goal Independent Toileting Goal Independent Bathing Goal Independent Toilet Transfer Goal Independent Shower Transfer Goal Independent Days to Meet Goals 7 Frequency of Treatment Frequency Of Treatment Once a Day Treatment Plan OT Treatment Plan ADL Training,Functional Cognition Training,Functional Mobility,Patient/Family Education,Discharge Planning Other Treatment Recommendations and Next shower if still here Treatment Focus Discharge Recommendations OT Discharge Recommendations Home with 24/7 Assist Available Transportation Needs at Discharge Private Vehicle
--- NOTE | 2021-11-10 14:20 | CM.DANOTE ---
DCP Assessment: Payor: Medicare; [employer] PCP: Seth Cabrera MD Pt is a 81 y.o. M who presented to the ER with dizziness, falling, and generalized weakness. Head CT negative. Pt admitted for concern for CVA and problems with ambulation. DCP met with pt this afternoon to discuss discharge needs. Pt states that he lives alone in [place]. Pt still drive POV but only in town. RN was in the room during discussion and stated that patient wants hearing aids. Pt is very hard of hearing. Pt son is supposed to come and pick the pt up today upon discharge. Pt does not have any other discharge needs at this time. RN also confirms no needs. DCP to continue to monitor. Whiteboard updated and instructed to call when needed. Pt thankful for discussion. P: Anticipate discharge today once ECHO is done. Pt to discharge back home via son POV. Annette Thornotn RN/TAVO Discharge Planning/Care Management CM Discharge Assessment Start: 11/10/21 11:41 Freq: Status: Active Protocol: Document 11/10/21 13:43 [facility] (Rec: 11/10/21 13:44 [facility] [id number]) Discharge Planning Assessment Assigned Laminator Hand Annette Thornton RN/TAVO Advance Directives? No History Provided By Patient Prior Living Arrangements House Household Members none Type of transporation used prior to Drives own vehicle admit Comment Only drives vehicle in town. Independent with ADL's Yes Is patient alert and oriented? Yes Caregiver for Another No Discharge Plan Home Referrals Initiated None needed Whiteboard Updated in Patient Room with Yes name and ext. # of Laminator Hand Comment Instructed to call if needed. Review Status In Process Please Provide Date Initial DC 11/10/21 Assessment Was Performed Next Review Type Continued Stay Review
--- NOTE | 2021-11-10 17:42 | P.DS_ITS ---
History of Present Illness History of Present Illness Date Patient Seen: 11/10/21 Time Patient Seen: 16:00 Chief complaint: Falling, Dizziness, Mind is scattered, Tired Discharge Providers Provider Date of admission: 11/09/21 22:09 Discharge Date: 11/10/21 Primary care physician: Seth Cabrera MD Consults: 11/09/21 22:58 Consult to Discharge Planning Routine Comment: Consult to Occupational Therapy Evaluate & Treat Comment: Physician Instructions: Evaluate and treat Consult to Physical Therapy Evaluate & Treat Comment: Physician Instructions: Evaluate and Treat Consult to Speech Therapy Evaluate & Treat Comment: Physician Instructions: Evaluate and treat 11/10/21 08:03 Consult to Dietitian, Adult Routine Comment: Reason For Exam: a1c 9.1 11/10/21 12:37 Consult to Inpatient Wound Care Nurse Routine Comment: Reason for consultation: right great toe callus Discharge provider: Michael Phillips DO Summary Hospital Course Discharge Diagnosis: Mr. Pedro is an 81M with PMH DM who presents with falls and ataxia 1. Ataxia -he also notes subacute dysphagia -swallow screen passed -NIH q4 hrs -keep on telemetry -allow permissive hypertension -MRI brain without acute stroke, ECHO with EF 50-55% -a1c 9.1%, LDL 121 -PT/OT eval cleared for home with assist 2. Left carotid bulb stenosis, severe -also 50% stenosis in right carotid bulb -already on aspirin and statin -discuss with PCP about adding plavix -consider outpatient referral for carotid endarterectomy 3. Type 2 Diabetes with hyperglycemia -hold oral meds -check glucose achs, ordered insulin sliding scale 4. Right large toe cellulitis -switched bactrim to doxycycline due to patient's older age and risks of bactrim use -xray showed no evidence of osteomyelitis 5. BPH -continue finasteride and tamsulosin 6. Hypertension -hold anti-hypertensives for now for permissive hypertension -resumed on discharge and amlodipine added due to initial BP in ED fo 214 systolic 7. Elevated creatinine, resolved -possibly secondary to CKD vs AMBER -did get fluids in ED -Cr 1.12 now Hospital Course: Admitted for ataxia and concern for TIA vs stroke. All stroke workup negative and Echo with EF 50-55%. Placed back on his home aspirin and statin as well as amlodipine due to very elevated BP during admission. CTA neck showed 90% stenosis of left carotid artery. Recommended he f/u outpatient for endarterectomy referral. Plavix not continued due to NIH of 0. May consider starting plavix as outpatient as well. Switched his chronic bactrim for his right big toe wound to doxycycline due to possible side-effects of bactrim with patient's advanced age. PT/OT cleared for home. Time Spent with Patient Time spent: Greater than 30 minutes Exam Vital Signs (past 8 hours): - 11/10/21 12:16 Temperature 98.3 F Pulse Rate 91 H Respiratory Rate 16 Blood Pressure 162/63 H Pulse Oximetry 96 Oxygen Flow Rate 0 Oxygen Delivery Method Room Air Oxygen Flow Rate 0 Narrative Exam Narrative: GEN: no acute distress HEENT: moist mucous membranes, PERRL NECK: trachea midline, no JVD PULM: clear bilaterally, no wheezes, rhonchi, rales CV: regular rate and rhyhtm, no murmurs ABD: soft, nontender, nondistended, no organomegaly EXT: warm and well perfused with no edema NEURO: awake, alert, oriented, cn 2-12 intact, no focal deficits noted SKIN: right great toe is erythematous and swollen Objective Labs Result Diagrams: 11/10/21 06:30 11/10/21 06:30 Labs: Laboratory Results - last 24 hr 11/09/21 11/09/21 11/10/21 15:00 17:38 06:30 WBC 5.1 RBC 3.81 L Hgb 10.7 L Hct 32.6 L MCV 85.6 MCH 28.1 MCHC 32.8 RDW 14.8 Plt Count 314 Neut % (Auto) 55.1 Lymph % (Auto) 22.6 L [place] % (Auto) 14.4 H Eos % (Auto) 7.4 H Baso % (Auto) 0.5 Neut # (Auto) 2800 Lymph # (Auto) 1100 [place] # (Auto) 700 Eos # (Auto) 400 Baso # (Auto) 0 Sodium Potassium Chloride Carbon Dioxide BUN Creatinine Estimated GFR BUN/Creatinine Ratio Glucose Hemoglobin A1c Calcium Total Creatine Kinase 129 CK-MB (CK-2) 2.57 H CK-MB (CK-2) Rel Index 2.0 Troponin I < 0.012 Triglycerides Cholesterol LDL Cholesterol, Calc HDL Cholesterol Urine Color Yellow Urine Appearance Clear Urine pH 5.5 Ur Specific [place] 1.015 Urine Protein 1+ H Urine Glucose (UA) 1+ H Urine Ketones Negative Urine Occult Blood Negative Urine Nitrate Negative Urine Bilirubin Negative Urine Urobilinogen 0.2 Ur Leukocyte Esterase Negative Urine RBC None seen Urine WBC None seen Ur Squamous Epith Cells None seen Urine Bacteria None seen Ur Culture Indicated? Cult not indicated 11/10/21 11/10/21 06:30 06:30 WBC RBC Hgb Hct MCV MCH MCHC RDW Plt Count Neut % (Auto) Lymph % (Auto) [place] % (Auto) Eos % (Auto) Baso % (Auto) Neut # (Auto) Lymph # (Auto) [place] # (Auto) Eos # (Auto) Baso # (Auto) Sodium 135 L Potassium 4.4 Chloride 102 Carbon Dioxide 27 BUN 20 Creatinine 1.12 Estimated GFR > 60 BUN/Creatinine Ratio 17.9 Glucose 161 H Hemoglobin A1c 9.1 H Calcium 8.7 Total Creatine Kinase CK-MB (CK-2) CK-MB (CK-2) Rel Index Troponin I Triglycerides 142 Cholesterol 194 LDL Cholesterol, Calc 121 H HDL Cholesterol 45 Urine Color Urine Appearance Urine pH Ur Specific [place] Urine Protein Urine Glucose (UA) Urine Ketones Urine Occult Blood Urine Nitrate Urine Bilirubin Urine Urobilinogen Ur Leukocyte Esterase Urine RBC Urine WBC Ur Squamous Epith Cells Urine Bacteria Ur Culture Indicated? PFSH Social History household members: none Smoking Status: Former smoker alcohol intake: never Discharge Plan Discharge Plan Patient Disposition: Home Provider Discharge Comment: You were admitted with dizziness and falls. Your workup for stroke was negative. I suspect it has to do with all of the medications you are taking, or perhaps due to high blood pressure as your BP was over 200 in the ED. I'm putting you on a blood pressure pill for this called amlodipine. Also I'm switching your bactrim antibiotic to a different one as it is unsafe to take when you are 81. The new antibiotic is called doxycycline and you take it twice per day for your foot wound. Nursing Discharge Comment: if symptoms return, call 911 or return to ER. please monitor your blood pressure and pulse daily or twice a day for a week prior to following up w/ your primary doctor. please see your primary MD w/in 7- [facility]. consider having the pharmacist where you fill your medications review your medications. there are some that could probably be discontinued, which would help w/ the dizziness and falls. i will send you with some gauze and foam bandages for your right merchant. change this once a day and as needed. if the pain/burning continue, give your doctor a call and discuss options for the nerve sky, gabapentin(neurontin) which you had today, ( you said this was helpful. ) it was a pleasure to be your nurse today, please take care of yourself, and no more falling! talk to your doctor about better diabetic shoes, and how to handle your diabetes. also, hearing aids! ( : they will improve your quality of life immensely. [facility] does free hearing exams, and their aides are reasonable. take care! Discharge orders & Medications Prescriptions: New doxycycline monohydrate 100 mg tablet 100 mg PO BID Qty: 180 0RF amlodipine 5 mg tablet 5 mg PO DAILY Qty: 90 0RF Continued glipizide 10 MG tablet 10 mg PO BID Qty: 0 fluoxetine 10 MG tablet 40 mg PO HS Qty: 0 hydrochlorothiazide 12.5 MG tablet 12.5 mg PO QDAY Qty: 0 tamsulosin [Flomax] 0.4 MG capsule,extended release 24hr 0.4 mg PO QAM Qty: 0 metformin [Glucophage XR] 500 MG tablet extended release 24 hr 1,500 mg PO QAM Qty: 0 metformin [Glucophage XR] 500 MG tablet extended release 24 hr 1,000 mg PO QPM Qty: 0 ACETAMINOPHEN 325 mg PO Q4HP PRNQty: 30 0RF finasteride 5 MG tablet 5 mg PO HS Qty: 0 celecoxib [Celebrex] 200 MG capsule 200 mg PO BIDCC PRN (Reason: Pain (Scale Score 4-6)) Qty: 0 bupropion HCl 100 mg tablet 100 mg PO TID Label Comments: take 1 tablet by mouth three times a day buspirone 10 mg tablet 10 mg PO DAILY Label Comments: take 1 tablet by mouth once daily diazepam 5 mg tablet 5 mg PO DAILY PRN (Reason: Anxiety) Label Comments: take 1/2 to 1 tablet by mouth once daily if needed for anxiety Rx Instructions: may take 1/2 to 1 pill Xtampza ER 18 mg cap,sprinkl,ER12hr(DONT CRUSH) 18 mg PO BID Discontinued sulfamethoxazole-trimethoprim 800-160 mg tablet 1 tab PO BID Rx Instructions: for 2 weeks Follow up/Referrals: Seth Cabrera MD [Primary Care Provider] - Diet/Activity/Treatments Diet comment: diabetic, heart healthy diet recommended Other treatments: hand rails in the hallways and other areas of the home, in order to keep you safe ! Visit Report/Discharge Packet Instructions: Aging Gracefully: Reducing the Risks of Polypharmacy, Transient Ischemic Attack, Gabapentin Discharge Data Primary Care Provider: Seth Cabrera Attending Provider: Ajith Rausch VTE Deep Vein Thrombosis/Pulmonary Embolism Present on Admission: No
== END 2021-11-10 16:20 | disposition home or self-care (01) ==
LOC: ED 17:58 → AC 22:23
PROVIDERS: Emergency Medicine; Admitting Provider Internal Medicine; Emergency Provider Emergency Medicine; Family Provider Internal Medicine; PCP Internal Medicine; Referring Provider Emergency Medicine; Visit Provider Internal Medicine
DX: R53.1 Weakness (principal); E11.9 Type 2 diabetes mellitus without complications; Z79.84 Long term (current) use of oral hypoglycemic drugs; R27.0 Ataxia, unspecified; I65.22 Occlusion and stenosis of left carotid artery; E11.65 Type 2 diabetes mellitus with hyperglycemia; L03.031 Cellulitis of right toe; N40.0 Benign prostatic hyperplasia without lower urinary tract symptoms; I10 Essential (primary) hypertension; R94.4 Abnormal results of kidney function studies; R29.700 NIHSS score 0; Z20.822 Contact with and (suspected) exposure to COVID-19
CPT/HCPCS: 36415; 70450; 70496; 70498; 70548; 70553; 71045; 73630; 80048; 80053; 80061; 81001; 82550; 82553; 82962; 83036; 83605; 83690; 84145; 84484; 85025; 87040; 87635; 93005; 93306; 96360; 96361; 96372; 97161; 97165; 99285; C9803; G0378; J1650; J1815

== ENCOUNTER 2021-12-17 09:54 | Day surgery (SDC) | payer OTHER, MEDICARE, SELFPAY ==
[2021-11-09 22:38] VITALS: BMI 23.7
[2021-12-15 08:20] VITALS: BMI 28.7
[2021-12-17] VITALS (8 sets, daily range): BP systolic 120–144; BP diastolic 54–89; PULSE 74–100; RESP 15–23; TEMP 36.2–37; O2SAT 95–98; BMI 28.7
--- NOTE | 2021-12-17 | PATH_ITS ---
[facility] Accession Number: [id number] . 01 Material submitted: . PART A: toe - RIGHT GREAT TOE PART B: toe - RIGHT SECOND TOE . 01 Diagnosis: A. Right Great Toe, Amputation: Cutaneous ulcer with underlying mixed inflammation, fibrosis, and adjacent reactive epidermal hyperkeratosis. Underlying bone with only focal/mild chronic inflammation. Skin and subcutaneous tissue viable with mild chronic inflammation. Bone en face margin viable. . B. Right Second Toe, Amputation: Skin with mild reactive hyperkeratosis. Bone with focal marrow fibrosis and without significant inflammatory infiltrate. Skin and subcutaneous tissue viable. Bone en face margin without significant inflammatory infiltrate. MRV 12/22/2021 1710 Local . 01 Electronically signed: . Oh Iqbal MD, Dermatopathologist NPI- [id number] . 01 Gross description: . A. Received in formalin, labeled with the patient's name, , and right great toe, and consists of an amputated digit measuring 3.9 cm in length and 4.7 cm in maximum diameter. The bone extends 0.9 cm from the soft tissue margin. The cutaneous surface is significant for a ulcerated, roughened area located medially, measuring 3.7 x 2.9 cm, with centrally blackened soft tissue. The remaining cutaneous surface is wrinkled and unremarkable. The nail bed is mcneill and thickened. The soft tissue margin is inked blue while the bone margin is inked orange. Sectioning reveals pink-mcneill soft tissue with mcneill, hard osseous tissue that is difficult to section with a scalpel. [employer] sections are submitted as follows following decalcification: A1-A2: Entire soft tissue margin en face. A3: Bone marrow en face. A4: [employer] section with ulcerated area and underlying bone. B. Received in formalin, labeled with the patient's name, , and right second toe, and consists of a disarticulated digit measuring 4.9 cm in length and 1.9 cm in diameter with bone extending out 1.8 cm from the soft tissue margin. The cutaneous surface is pink to mcneill and wrinkled with no lesions or ulcerations identified. The nail bed is mcneill and unremarkable. The soft tissue margins are inked blue while the disarticulated surface is inked orange. Sectioning reveals unremarkable mcneill soft tissue with pink, hard osseous tissue that is difficult to sections with a scalpel. [employer] sections are submitted as follows: B1: Soft tissue margins en face. B2: Articular surface en face. B3: [employer] cross section. . B2-B3 submitted for decalcification. ([id number]) /R 12/19/2021 1708 Local . 01 Pathologist provided ICD-10: R23.9, M19.079 . 01 CPT . 988258, 964380, 936256, [id number] Specimen Comment: A courtesy copy of this report has been sent to [phone] Performed at: [facility] [address] [place] [address], [place], [place] [id number] MD Kushal Stephenson MD Phone: [phone]
[2021-12-17] MEDS: LACTATED RINGERS 1,000 ML 42 ML IV (11:09)
--- NOTE | 2021-12-17 12:20 | PM.PREOP ---
Pre-operative Note COVID-19 COVID-19 status: Negative Criteria for continued procedure: Expected advancement of disease process Interval Note History & Physical reviewed/Exam performed by Physician: Yes Changes to H&P: No
--- NOTE | 2021-12-17 12:28 | SUR.PREOP ---
Dr Zendejas at bedside providing patient local numbing medication to operative extremity.
[2021-12-17] MEDS: CEFAZOLIN 2 GM/100 ML PREMIX 100 ML IV (12:45)
--- NOTE | 2021-12-17 13:13 | SUR.OPER ---
Supine on padded OR bed, head on pillow, arms secured on padded arm boards at <90 degrees abduction, legs uncrossed, safety belt at lower torso, tape over blanket over left lower leg. folded blanket bump under right lower leg per Surgeon and in control by Surgeon.
[2021-12-17] MEDS: LIDOCAINE 1% 20 ML INJ (13:36)
[2021-12-17] MEDS: EPINEPHrine 1 MG/ML 0.2 MG INJ (13:38)
[2021-12-17] MEDS: BUPIVACAINE 0.5% (PF) VIAL 10 ML INJ (13:39)
--- NOTE | 2021-12-17 14:30 | P.OP_ITS ---
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 He is getting recurrent and chronic ulcerations and osteomyelitis. He is on IV antibiotics with Infectious Disease but has severe medical comorbid morbidities that required treatment that are not able to occur while he has an ongoing active osteomyelitis. Therefore he has been indications did for partial great toe amputation and 2nd toe amputation to eradicate his osteomyelitis allow healing reduce the risk of wound recurrence and allow him to potentially in the IV antibiotics early and move on to be able to have his other comorbidities treated. He is currently awaiting surgery on his critical carotid stenosis but is unable to get this done until his toe infection is resolved. The risks and benefits of the procedure have been discussed with the patient and his son they given the opportunity to ask questions. The risks of surgery include but are not limited to infection, need for additional procedures, persistence of pain, damage to nerves and blood vessels, posttraumatic arthritis, DVT, PE, coardiopulmonary complications and . The patient expressed a thorough understanding of the risks and benefits of surgery and has elected to proceed. Consent was signed. Additionally this surgery was coordinated with his infectious disease physicians to potentially eradicate infe ction early and allow the patient to proceed on with his other required medical care. Surgeon: Em Zendejas Click Yes if Unassisted: Yes Anesthesia Type: Sedation and Local Operative Notes Findings: Full-thickness ulceration medial plantar distal phalanx right great toe severe hallux valgus deformity with crossover 2nd toe Closure Type: primary Specimen(s): other (Bone at the proximal amputation site which is the proximal phalanx right great toe was sent for culture and Gram stain. The amputated great toe and 2nd toe were sent for pathology) Estimated Blood Loss (mL): 15 Blood products transfused: none Tourniquet time (min): 18 Procedure in detail: Patient was seen in the preoperative area the site of surgery was marked informed consent confirmed. After discussion with the [employer] a decision made for sedation and local anesthetic. Patient's site of surgery was marked informed consent confirmed. In the preoperative room the right foot was cleaned with chlorhexidine. A distal field block was performed using a 50 50 mixture of 1% lidocaine with epinephrine and 0.5% Marcaine infiltrating around the surgery site 1st MTP and 2nd MTP on the right foot. This was allowed to set up. Then the patient was brought back to the operating room. He was positioned in the geiger pine position on the operative table. All bony prominences well padded. Light sedation was administered. An ankle tourniquet was placed. The right lower extremities prepped and draped in the standard sterile fashion. A formal time- out procedure was performed confirming the patient site and side of surgery patient was administered IV antibiotics and had been on scheduled. Attention was turned to the right lower extremity was exsanguinated and the tourniquet was raised to 250 mmHg and stayed there for 18 minutes. Attention was turned to the right great toe and 2nd toe. Levels of the planned amputation were marked out on the foot . Scalpel was used on the great toe to perform the amputation the level just past the IP joint. TPS saw was used to remove the bone. This was then sent for pathology. At next an incision at the base of the 2nd toe was made in the standard Y amputation incision. This was taken down through the subcutaneous and deep tissues. The flexor and extensor tendons were cut at the level of MTP joint and the 2nd toe was disarticulated at the MTP joint. This was also sent for pathology. At this point the foot was irrigated thoroughly with saline using the bulb syringe next clean drapes were placed down. Gloves were changed and instruments were changed. The saw was then used to remove some additional proximal phalanx bone at the great toe rounding the edges to create a a favorable amputation stump. Mini C-arm was brought in for fluoroscopic images confirming appropriate amputation appearance. This was then sent for culture as the proximal bone margin. Next a rasp was used to smooth the bone edges. Tourniquet was released hemostasis was achieved. And the skin tissue was closed at the great toe amputation with 3-0 PDS, 4-0 Monocryl, 3-0 and 4-0 nylon suture. The 2nd MTP disarticulation site was closed with 3-0 PDS, 4-0 Monocryl and 4-0 nylon suture. Dressing was placed with Xeroform gauze Stone wrap and a Coban. Patient was woken and taken to recovery room in good condition. Taken tolerated the procedure well. There were no complications. All counts were correct. Complications: none Post-operative Condition: stable Disposition: PACU Plan for aftercare: Weightbear as tolerated in postop shoe or heel weightbear. Keep dressing in place. Keep dressing dry. Continue IV antibiotics until cultures are finalized. Follow-up in [facility] in approximately 2 weeks. Sutures w ill remain in place 2-4 weeks.
[2021-12-17] MEDS: ALBUTEROL/IPRATROPIUM 3 ML AMPUL INH (14:42)
== END 2021-12-17 14:48 | disposition home or self-care (01) ==
PROVIDERS: Family Provider Internal Medicine; PCP Internal Medicine; Referring Provider Orthopaedic Surgery Foot and Ankle Surgery; Visit Provider Orthopaedic Surgery Foot and Ankle Surgery
PROC: (CPT 28820; principal; 2021-12-17 11:15)
DX: E11.621 Type 2 diabetes mellitus with foot ulcer (principal); L97.514 Non-pressure chronic ulcer of other part of right foot with necrosis of bone; E11.69 Type 2 diabetes mellitus with other specified complication; M86.9 Osteomyelitis, unspecified; M20.5X1 Other deformities of toe(s) (acquired), right foot; M20.41 Other hammer toe(s) (acquired), right foot; M19.09 Primary osteoarthritis, other specified site; M20.11 Hallux valgus (acquired), right foot; Z79.84 Long term (current) use of oral hypoglycemic drugs; L85.9 Epidermal thickening, unspecified
CPT/HCPCS: 28820; 28825; 87070; 87075; 87205; J0171; J0690; J2704